=== PATIENT | female | born 1950 | race Caucasian/White ===

== ENCOUNTER 2017-10-25 08:48 | Inpatient (IN) ==
[2017-10-25] MEDS ORDERED: 0.9 % Sodium Chloride 1,000 ML IVC ONE ×2 (09:28→12:13)
[2017-10-25 09:53] LABS: Basophils # 0.1 K/mcL (0.0-0.2); Basophils % 0.5 %; Eosinophils % 0.3 %; Hematocrit 32.8 % (35.3-44.9); Hemoglobin 11.4 g/dL (11.5-15.4); Immature Granulocytes % 2.3 % (0-4); Lymphocytes # 1.6 K/mcL (0.6-4.6); Lymphocytes % 14.6 %; Mean Corpuscular HGB Conc 34.8 g/dL (31.6-35.5); Mean Corpuscular Hemoglobin 32.3 pg (28.0-33.3); Mean Corpuscular Volume 92.9 fL (83.0-100.0); Mean Platelet Volume 11.1 fL (9.4-12.4); Monocytes # 0.7 K/mcL (0.0-1.3); Monocytes % 6.1 %; Neutrophils # 8.2 K/mcL (1.6-8.9); Platelet Count 257 K/mcL (140-400); Red Blood Count 3.53 M/mcL (3.82-4.97); Segmented Neutrophils % 76.2 %
[2017-10-25 10:02] LABS: Activated Partial Thrombo Time 26.4 Seconds (26.0-36.0)
[2017-10-25 10:10] LABS: Alanine Aminotransferase 12 Units/L (7-52); Albumin/Globulin Ratio 0.9 (1.1-2.2); Alkaline Phosphatase 105 Units/L (34-104); Aspartate Amino Transferase 14 Units/L (13-39); BUN/Creatinine Ratio 29 (6-26); Bilirubin,Direct 0.1 mg/dL (0.0-0.2); Bilirubin,Indirect 0.4 mg/dL (0.0-1.2); Bilirubin,Total 0.5 mg/dL (0.3-1.0); Blood Urea Nitrogen 19 mg/dL (8-23); Carbon Dioxide 22 mEq/L (23-29); Chloride 97 mEq/L (98-107); Globulin 3.5 g/dL (2.4-3.5); Glucose 344 mg/dL (70-105); Lipase 3 Units/L (11-82); Magnesium 1.1 mg/dL (1.6-2.6); Osmolality,Calculated 288 (280-300); Phosphorous 3.8 mg/dL (2.7-4.5); Potassium 4.1 mEq/L (3.5-5.1); Sodium 131 mEq/L (136-145); Total Protein 6.5 g/dL (6.4-8.9); eGFR For Non-African Americans > 60 (> 60)
[2017-10-25] MEDS ORDERED: Levofloxacin 750 MG/150 ML 750 MG/150 ML BAG IVPB ONE (11:06)
--- NOTE | 2017-10-25 12:08 | Emergency Department Note ---
Disposition Clinical Impression: Pleural effusion, right Right lower lobe pneumonia Qualifiers: Pneumonia type: due to unspecified organism Qualified Code(s): J18.1 - Lobar pneumonia, unspecified organism Disposition: Admitted As Inpatient Referrals: NONE,PCP [Primary Care Provider] - Forms: ED Satisfaction Letter Time of Disposition: 12:31 General Adult HPI - General Chief complaint: ED Urogenital-Female Stated complaint: UTI, weak Time Seen by Provider: 10/25/17 09:14 Source: patient, family Limitations: no limitations, age Nursing Notes Reviewed: Yes Vital Signs Reviewed: Yes - History of Present Illness HPI Narrative: History is primarily from a son who is not the one cares for her. He indicates that she has been sick for the last several days. Has not been out of bed. Has not been eating or drinking. The patient states that it just does not taste good and she does not feel like drinking. Apparently she is cared for by a different family members and some grandchildren. Patient did not offer but was recently hospitalized for dehydration, suicidal ideation. Apparently voicing that she wanted to take an overdose of insulin. She had acute renal failure at that time and also has a history of COPD and is a smoker. No indication that she has any intention to harm herself this time around. She reports that she has been ill with cough, congestion in the last few days. Denies fevers. Reports very dark urine and decreased volumes of urine. Reports pain from an area on her left heel that she states is increasingly painful over the last 24-48 hours. Denies any leg pain. Denies any abdominal or chest pain. Denies any difficulty breathing. Reports cough is nonproductive Onset (ago): day(s) Pain Scale: 0 - Related Data Home Medications Medication Instructions Recorded Confirmed Insulin Glargine [Lantus] 30 unit SQ BID 07/10/16 10/05/17 Oxycodone HCl/Acetaminophen 1 tab PO QID PRN 07/10/16 10/05/17 [Percocet 10-325 mg Tablet] Promethazine [Phenergan] 25 mg PO Q6HR 07/10/16 10/05/17 Gabapentin [Neurontin] 400 mg PO TID 08/17/17 10/05/17 Amitriptyline [Elavil] 100 mg PO HS 10/03/17 10/05/17 Insulin Regular Human [Humulin R] 0 unit SQ PER PKG DI 10/03/17 10/05/17 Metoclopramide [Reglan] 10 mg PO QIDAC 10/03/17 10/05/17 Previous Rx's Medication Instructions Recorded Amitriptyline [Elavil] 10 mg PO HS #7 tablet 10/07/17 Amitriptyline [Elavil] 25 mg PO HS #7 tablet 10/07/17 Amitriptyline [Elavil] 50 mg PO HS #7 tablet 10/07/17 Mirtazapine [Remeron] 15 mg PO DAILY #30 tablet 10/07/17 Polyethylene Glycol 3350 [MiraLAX] 17 gm PO DAILY #7 powd.pack 10/07/17 Allergies Allergy/AdvReac Type Severity Reaction Status Date / Time gentamicin Allergy Unknown See Verified 10/05/17 09:29 Comments Penicillins Allergy Unknown See Verified 10/05/17 09:29 Comments sertraline [From Zoloft] Allergy Unknown See Verified 10/05/17 09:29 Comments tramadol Allergy Unknown See Verified 10/05/17 09:29 Comments trazodone Allergy Unknown See Verified 10/05/17 09:29 Comments atorvastatin [From Lipitor] Allergy tingling Verified 10/05/17 09:29 duloxetine [From Cymbalta] Allergy Numbness Verified 10/05/17 09:29 ketorolac [From Toradol] Allergy tingling Verified 10/05/17 09:29 morphine Allergy see comment Verified 10/05/17 09:29 ondansetron Allergy see comment Verified 10/05/17 09:29 [From Zofran (as hydrochloride)] prochlorperazine Allergy see comment Verified 10/05/17 09:29 All systems ED: reviewed and negative except as stated. Review of Systems: As Per HPI Gastrointestinal: Denies: abdominal pain, nausea, vomiting Genitourinary: Reports: as per HPI Past Medical History - Past Medical History Medical history: Reports: coronary artery disease, CVA, diabetes, GERD, hyperlipidemia, hypertension, renal disease, other Surgical history: Reports: , cholecystectomy Psychiatric history: Reports: depression INTERNATIONAL TRADE SPECIALIST history: Reports: no INTERNATIONAL TRADE SPECIALIST history - Social History Smoking Status: Current every day smoker Smokeless Tobacco Status: No Alcohol use: Reports: none Drug use: Reports: none Physical Exam Constitutional: Patient is oriented to person, place, and time. Skin color is pink. Appears well hydrated, body habitus elderly and frail. Appears older than her stated age . Non toxic appearing. Head: Normocephalic and atraumatic. External ear exam normal Nose: Nose normal. Mouth/Throat: Uvula is midline, oropharynx is clear mucous membranes are very dry appearing Eyes: Conjunctivae nl, extraocular motions and lids are normal. Pupils are equal , round, and reactive to light. Neck: Normal range of motion and phonation normal. Neck supple. Cardiovascular: Normal rate, regular rhythm, normal heart sounds. Pulmonary/Chest: No Respiratory distress. Respiratory Effort normal and breath sounds congested. Coarse rhonchi. Diffuse. No intercostal retractions. No tachypnea Port-A-Cath noted anterior chest without erythema or any heat or any tenderness around it Abdominal: Soft. Normal appearance and bowel sounds are normal. no tenderness, no masses, no guarding, no rebound Patient has no evidence of breakdown of the skin over her buttocks or her coccyx. She has no swelling or abnormalities of the external vulva Musculoskeletal: Good distal pulses. Soft compartments. Brisk cap refill. Extremities: Normal range of motion.but the patient has muscle wasting and decreased strength diffusely. Blistered ulcer left heel Intact peripheral pulses. No Edema. Extremity skin color nl, no calf tenderness or palpable cords. Neurological: GCS 15 Patient is alert and oriented without evidence of obvious motor deficits Skin: Skin is warm, dry . Patient has a 4 cm round blistered pressure sore over the left heel. Blister is intact. It is quite tender to palpation. Very slight rim of erythema surrounding the blister. I removed the skin over the surface and cultured the turbid fluid but there is no purulence. color is pale, cap refill is quick Psychiatric: Patient has depressed mood and affect. Patient speech is normal and behavior is normal. Thought content normal. She denies suicidality - General Limitations: no limitations General appearance: alert, in no apparent distress Course - Reevaluation(s) Reevaluation #1: I was called to the bedside suddenly as the patient was asking to be put on the bedside commode to provide a urine specimen however she was so weak that the nurse was not able to handle her and we had to get her back in bed. She is clearly not a candidate for outpatient management. Patient has pneumonia and requires inpatient care She has no primary care provider at this point. We will contact our physicians Dr. Cason is operations director Time: 12:22 Reevaluation #2: I discussed the case with hospitalist operations director Dr. Cason. We talked specifically about antibiotic choice and he wishes to continue vancomycin with Levaquin. We talked about Lovenox and a daily lower dose and DuoNeb. She will require IV fluids and he requested that I enter orders for her admission as a courtesy and I have agreed to do so. Patient is agreeable to inpatient care Time: 12:25 Vital Signs Temperature 97.3 F L 10/25/17 09:02 Pulse Rate 133 10/25/17 09:02 Respiratory Rate 16 10/25/17 09:02 Blood Pressure 143/80 10/25/17 09:02 O2 Sat by Pulse Oximetry 97 10/25/17 09:02 Temperature 97.3 F L 10/25/17 09:02 Pulse Rate 119 10/25/17 12:21 Respiratory Rate 16 10/25/17 12:21 Blood Pressure 123/66 10/25/17 12:21 O2 Sat by Pulse Oximetry 100 10/25/17 12:21 Oxygen Delivery Oxygen Delivery Room Air Procedures - Laceration Laceration 1 Site: lower extremity Side (If applicable): left Medical Decision Making - [facility] Narrative Medical decision making narrative: Patient appears ill. May have upper respiratory symptoms. May have respiratory illness such as pneumonia. She also has obviously been in bed and she has got a pressure sore on her left heel. This could be infected although I doubt it would cause systemic symptoms because there is no sign of cellulitis. She also may have acute kidney failure again or other debilitated disease. - Medical Records Medical records reviewed: Yes I reviewed the patient's medical records. Further review of the medical history the patient was just discharged from the hospital on the . She had been seen here in the emergency department but was suicidal so she was sent to [place]. She was seen by psychiatry and internal medicine. Discharged. Her renal function today is excellent compared to a month ago. She does have hyperglycemia today which she has also had issues with. She had a CT scan on of her abdomen which was normal. Her magnesium has improved. Her potassium is now normal. I reviewed previous lab work. - Lab Data Lab results reviewed: Yes I reviewed the patient's lab results. Result diagrams: 10/25/17 09:45 10/25/17 09:45 Lab Results 10/25/17 10/25/17 10/25/17 Range/Units 09:45 09:45 09:45 WBC 10.8 (4.3-11.1) K/mcL RBC 3.53 L (3.82-4.97) M/mcL Hgb 11.4 L (11.5-15.4) g/dL Hct 32.8 L (35.3-44.9) % MCV 92.9 (83.0-100.0) fL MCH 32.3 (28.0-33.3) pg MCHC 34.8 (31.6-35.5) g/dL RDW 13.0 (11.5-14.5) % Plt Count 257 (140-400) K/mcL MPV 11.1 (9.4-12.4) fL Immature Gran % 2.3 (0-4) % Seg Neutrophils % 76.2 % Lymphocytes % 14.6 % Monocytes % 6.1 % Eosinophils % 0.3 % Basophils % 0.5 % Neutrophils # 8.2 (1.6-8.9) K/mcL Lymphocytes # 1.6 (0.6-4.6) K/mcL Monocytes # 0.7 (0.0-1.3) K/mcL Eosinophils # 0.0 (0.0-0.6) K/mcL Basophils # 0.1 (0.0-0.2) K/mcL PT 11.0 (9.4-12.1) Seconds INR 1.0 APTT 26.4 (26.0-36.0) Seconds Sodium 131 L (136-145) mEq/L Potassium 4.1 (3.5-5.1) mEq/L Chloride 97 L (98-107) mEq/L Carbon Dioxide 22 L (23-29) mEq/L BUN 19 (8-23) mg/dL Creatinine 0.66 (0.60-1.20) mg/dL Est GFR ( Amer) > 60 (> 60) Est GFR (Non-Af Amer) > 60 (> 60) BUN/Creatinine Ratio 29 H (6-26) Glucose 344 H (70-105) mg/dL Calculated Osmolality 288 (280-300) Lactic Acid (0.5-2.2) mmol/L Calcium 9.0 (8.6-10.3) mg/dL Phosphorus 3.8 (2.7-4.5) mg/dL Magnesium 1.1 L (1.6-2.6) mg/dL Total Bilirubin 0.5 (0.3-1.0) mg/dL Direct Bilirubin 0.1 (0.0-0.2) mg/dL Indirect Bilirubin 0.4 (0.0-1.2) mg/dL AST 14 (13-39) Units/L ALT 12 (7-52) Units/L Alkaline Phosphatase 105 H (34-104) Units/L Serum Total Protein 6.5 (6.4-8.9) g/dL Albumin 3.0 L (3.5-5.7) g/dL Globulin 3.5 (2.4-3.5) g/dL Albumin/Globulin Ratio 0.9 L (1.1-2.2) Lipase 3 L (11-82) Units/L //18 Range/Units 09:45 WBC (4.3-11.1) K/mcL RBC (3.82-4.97) M/mcL Hgb (11.5-15.4) g/dL Hct (35.3-44.9) % MCV (83.0-100.0) fL MCH (28.0-33.3) pg MCHC (31.6-35.5) g/dL RDW (11.5-14.5) % Plt Count (140-400) K/mcL MPV (9.4-12.4) fL Immature Gran % (0-4) % Seg Neutrophils % % Lymphocytes % % Monocytes % % Eosinophils % % Basophils % % Neutrophils # (1.6-8.9) K/mcL Lymphocytes # (0.6-4.6) K/mcL Monocytes # (0.0-1.3) K/mcL Eosinophils # (0.0-0.6) K/mcL Basophils # (0.0-0.2) K/mcL PT (9.4-12.1) Seconds INR APTT (26.0-36.0) Seconds Sodium (136-145) mEq/L Potassium (3.5-5.1) mEq/L Chloride (98-107) mEq/L Carbon Dioxide (23-29) mEq/L BUN (8-23) mg/dL Creatinine (0.60-1.20) mg/dL Est GFR ( Amer) (> 60) Est GFR (Non-Af Amer) (> 60) BUN/Creatinine Ratio (6-26) Glucose (70-105) mg/dL Calculated Osmolality (280-300) Lactic Acid 1.0 (0.5-2.2) mmol/L Calcium (8.6-10.3) mg/dL Phosphorus (2.7-4.5) mg/dL Magnesium (1.6-2.6) mg/dL Total Bilirubin (0.3-1.0) mg/dL Direct Bilirubin (0.0-0.2) mg/dL Indirect Bilirubin (0.0-1.2) mg/dL AST (13-39) Units/L ALT (7-52) Units/L Alkaline Phosphatase (34-104) Units/L Serum Total Protein (6.4-8.9) g/dL Albumin (3.5-5.7) g/dL Globulin (2.4-3.5) g/dL Albumin/Globulin Ratio (1.1-2.2) Lipase (11-82) Units/L - Radiology Data Radiology results reviewed: Yes I reviewed the patient's radiology results. Chest x-ray radiology impression "new right base opacity with trace effusion. Findings may represent infection in the appropriate clinical setting. Right chest wall MediPort in stable position"
[2017-10-25] MEDS ORDERED: Insulin Regular, Human 100 UNIT/ML SQ ONE (12:13)
[2017-10-25] MEDS ORDERED: Vancomycin 1,000 MG in D5% in Water 250 ML IVPB ONE (12:26)
[2017-10-25] MEDS ORDERED: Ipratropium/Albuterol Neb 3 ML IH ONE (12:28)
[2017-10-25 12:47] LABS: Bilirubin,Urine Small (Negative); Blood,Urine Negative (Negative); Clarity,Urine Clear (Clear); Color,Urine Yellow (Yellow); Glucose,Urine (UA) 500 mg/dL (Normal); Ketones,Urine 40 mg/dL (Negative); Leukocyte Esterase,Urine Negative (Negative); Nitrite,Urine Negative (Negative); PH,Urine 5.5 pH Units (5.0-8.0); Protein,Urine 100 mg/dL (Neg-Trace); Specific Gravity,Urine 1.025 (1.010-1.025); Urobilinogen,Urine Normal (Normal)
[2017-10-25 13:03] LABS: Bacteria,Urine Few per hpf (None-Few); Squamous Epithelial Cell,Urine Few per lpf (None-Few)
[2017-10-25] MEDS ORDERED: Naloxone 0.4 MG/ML INJ IVP PRN (13:36)
[2017-10-25] MEDS ORDERED: *HR* Dextrose 50 % in Water (Syg) 50 ML SYRINGE IVP PRN (13:36)
[2017-10-25] MEDS ORDERED: D5% in Water 1,000 ML IVC PRN (13:36)
[2017-10-25] MEDS ORDERED: Dextrose Gel 15 GM/37.5 ML TUBE PO PRN ×2 (13:36)
[2017-10-25] MEDS ORDERED: NON-FORMULARY MEDICATION 1 EACH EACH (Insulin Glargine [Lantus] 30 UNIT) SQ SCH (13:36)
[2017-10-25] MEDS: Ipratropium/Albuterol Neb 3 ML IH SCH ×3 (14:34→20:50)
[2017-10-25] MEDS: Levofloxacin 500 MG/100 ML 500 MG/100 ML BAG IVPB SCH (14:35)
[2017-10-25] MEDS: 0.9 % Sodium Chloride 1,000 ML IVC SCH ×2 (14:39→23:01)
[2017-10-25] MEDS: Acetaminophen 325 MG TABLET PO PRN (14:49)
[2017-10-25] MEDS: Gabapentin 400 MG CAPSULE PO SCH ×2 (14:49→20:50)
[2017-10-25] MEDS: Insulin LISPRO 300 UNITS/3 ML VIAL SQ SCH (16:48)
[2017-10-25] MEDS: Insulin DETEMIR 100 UNIT/ML X5UNITS SQ SCH (20:50)
[2017-10-25] MEDS ORDERED: Vancomycin 1,000 MG VIAL IVPB SCH (21:00)
[2017-10-26] MEDS ORDERED: *HR* Enoxaparin 30 MG/0.3 ML SYRINGE SQ SCH (06:00)
[2017-10-26 06:05] LABS: Basophils % 0.3 %; Eosinophils # 0.1 K/mcL (0.0-0.6); Eosinophils % 0.7 %; Hematocrit 26.1 % (35.3-44.9); Lymphocytes # 1.7 K/mcL (0.6-4.6); Lymphocytes % 21.5 %; Mean Corpuscular HGB Conc 34.5 g/dL (31.6-35.5); Mean Corpuscular Hemoglobin 32.5 pg (28.0-33.3); Mean Corpuscular Volume 94.2 fL (83.0-100.0); Mean Platelet Volume 10.5 fL (9.4-12.4); Monocytes # 0.5 K/mcL (0.0-1.3); Monocytes % 6.3 %; Neutrophils # 5.2 K/mcL (1.6-8.9); Platelet Count 182 K/mcL (140-400); Red Blood Count 2.77 M/mcL (3.82-4.97); Red Cell Distribution Width 12.8 % (11.5-14.5); Segmented Neutrophils % 68.2 %
[2017-10-26 06:12] LABS: INR 1.1; Prothrombin Time 11.8 Seconds (9.4-12.1)
[2017-10-26 06:15] LABS: Activated Partial Thrombo Time 25.5 Seconds (26.0-36.0)
[2017-10-26 06:20] LABS: Alanine Aminotransferase 9 Units/L (7-52); Albumin 2.4 g/dL (3.5-5.7); Albumin/Globulin Ratio 0.9 (1.1-2.2); Alkaline Phosphatase 83 Units/L (34-104); Aspartate Amino Transferase 10 Units/L (13-39); BUN/Creatinine Ratio 27 (6-26); Bilirubin,Total 0.2 mg/dL (0.3-1.0); Blood Urea Nitrogen 13 mg/dL (8-23); Calcium 7.7 mg/dL (8.6-10.3); Carbon Dioxide 20 mEq/L (23-29); Chloride 106 mEq/L (98-107); Globulin 2.7 g/dL (2.4-3.5); Glucose 125 mg/dL (70-105); Magnesium 0.9 mg/dL (1.6-2.6); Osmolality,Calculated 282 (280-300); Potassium 3.6 mEq/L (3.5-5.1); Sodium 135 mEq/L (136-145); Total Protein 5.1 g/dL (6.4-8.9); eGFR For Non-African Americans > 60 (> 60)
[2017-10-26] MEDS: Insulin LISPRO 300 UNITS/3 ML VIAL SQ SCH ×3 (07:40→16:43)
[2017-10-26] MEDS: Gabapentin 400 MG CAPSULE PO SCH ×3 (08:42→21:40)
[2017-10-26] MEDS: Nicotine 21 MG PATCH.TD24 TD SCH (08:42)
[2017-10-26] MEDS: Mirtazapine 15 MG TABLET PO SCH (08:43)
[2017-10-26] MEDS: Ipratropium/Albuterol Neb 3 ML IH SCH ×4 (08:43→21:41)
[2017-10-26] MEDS: Insulin DETEMIR 100 UNIT/ML X5UNITS SQ SCH ×2 (08:43→21:40)
[2017-10-26] MEDS: *HR* OxyCODONE/APAP 7.5/325 TABLET PO PRN ×3 (09:11→21:40)
--- NOTE | 2017-10-26 09:58 | Internal Med History&Physical ---
Date of Encounter: 10/26/17 Time of Encounter: 09:55 Assessment and Plan (1) COPD exacerbation Current visit: Yes Status: Acute hx of smoking and COPD on breathing treatment and being treated with HHN .Not on steriod at the present time. On my examination there is no wheeze and if needed we could add . She is also a diabetic . (2) Pneumonia Current visit: Yes Status: Acute She has prota cath most likely for IV access there is an infiltrate on right side as well Sputum culture has been sent . Since she was admitted less thena month a go . she was given van . On levo as well . Culture has been sent. WBC is normal. Followp xray ordered tomorrow. Is she continues to improve Van could be discontinues and switched to oral . Will also need to see PT for assessment since she is a fall risk Leigenella and Strep Pneumo antigen pending . Influenza Negative clinically she has improved since her admission . Qualifiers: Pneumonia type: due to unspecified organism Laterality: right Lung location: lower lobe of lung Qualified Code(s): J18.1 - Lobar pneumonia, unspecified organism (3) Diabetes 1.5, managed as type 2 Current visit: No Status: Chronic on meds stable On insulin and sliding scale (4) Low back pain Current visit: No Status: Chronic use percocet as needed Qualifiers: Chronicity: acute Back pain laterality: midline Sciatica presence: without sciatica Qualified Code(s): M54.5 - Low back pain Internal Medicine - H&P: HPI Chief complaint: SOB and hypoxic on exertion Admitted From: Emergency Dept History of present illness: Ms. Jones is a 67 year old female who was discharged from [place] last month and was broguht back again with complains of increase in SOB . She state that she was having difficulty in moving around due to her SOB. She uses Oxygen at home She was increase in cough fever and chills . She still smokes . No chest pain Complains of pain in her back which has been chronic in nautre. She also complains of constipation . Past Med Surg Social Fam HX - Past Medical History Medical history: coronary artery disease, CVA, diabetes, GERD, hyperlipidemia, hypertension, renal disease, other Psychiatric history: depression - Past Surgical History Surgical History: , cholecystectomy - Social History Smoking Status: Current every day smoker Packs per day: 1.5 Smokeless Tobacco Status: No Alcohol use: none Drug use: none - Family History Mother Living Status: Hx Family Cardiac Disorders: Yes (CHF, HTN, [place]) Hx Family Respiratory Disorders: No Hx Family Cancer: No Hx Family GI Disorders: No Hx Family Endocrine Disorder: Yes (DM) Hx Family Neuromuscular Disorders: No Hx Family Neurologic Disorders: No Hx Family HEENT Disorders: No Hx Family Autoimmune Disorders: No Father Hx Family Cardiac Disorders: Yes ([place]) Internal Medicine - H&P: Meds Insulin Glargine [Lantus] 30 unit SQ BID 07/10/16 [History] Oxycodone HCl/Acetaminophen [Percocet 10-325 mg Tablet] 7.5 tab PO PRN PRN 07/10 [History] Promethazine [Phenergan] 25 mg PO Q6HR 07/10/16 [History] Gabapentin [Neurontin] 400 mg PO TID 08/17/17 [History] Amitriptyline [Elavil] 100 mg PO HS 10/03/17 [History] Insulin Regular Human [Humulin R] 0 unit SQ PER PKG DI 10/03/17 [History] Metoclopramide [Reglan] 10 mg PO QIDAC 10/03/17 [History] Amitriptyline [Elavil] 10 mg PO HS #7 tablet 10/07/17 [Rx] Amitriptyline [Elavil] 25 mg PO HS #7 tablet 10/07/17 [Rx] Amitriptyline [Elavil] 50 mg PO HS #7 tablet 10/07/17 [Rx] Mirtazapine [Remeron] 15 mg PO DAILY #30 tablet 10/07/17 [Rx] Polyethylene Glycol 3350 [MiraLAX] 17 gm PO DAILY #7 powd.pack 10/07/17 [Rx] 3 Allergy/AdvReac Type Severity Reaction Status Date / Time gentamicin Allergy Unknown See Verified 10/05/17 09:29 Comments Penicillins Allergy Unknown See Verified 10/05/17 09:29 Comments sertraline [From Zoloft] Allergy Unknown See Verified 10/05/17 09:29 Comments tramadol Allergy Unknown See Verified 10/05/17 09:29 Comments trazodone Allergy Unknown See Verified 10/05/17 09:29 Comments atorvastatin [From Lipitor] Allergy tingling Verified 10/05/17 09:29 duloxetine [From Cymbalta] Allergy Numbness Verified 10/05/17 09:29 ketorolac [From Toradol] Allergy tingling Verified 10/05/17 09:29 morphine Allergy see comment Verified 10/05/17 09:29 ondansetron Allergy see comment Verified 10/05/17 09:29 [From Zofran (as hydrochloride)] prochlorperazine Allergy see comment Verified 10/05/17 09:29 All Systems PM: A 10-system review of systems was performed and is negative for pertinent findings except as documented above in the HPI. - Constitutional Constitutional: fatigue, falls, lethargy, weakness, no anorexia, no chills, no excessive sweating, no weight loss - EENT Eyes: no blurry vision, no diplopia, no discharge, no photophobia, no seeing flashes Nose, mouth and throat: no dysphagia, no facial pain, no nasal congestion, no odynophagia - Cardiovascular Cardiovascular ROS IM: no chest pain, no diaphoresis, no dyspnea, no lightheadedness, no orthopnea, no paroxysmal nocturnal dyspnea, no syncope - Respiratory Respiratory: cough, dyspnea, dyspnea on exertion, wheezing, chest congestion, no hemoptysis, no snoring, no pain on inspiration, no pain with cough - Gastrointestinal Gastrointestinal: no abdominal pain, no constipation, no diarrhea, no nausea, no odynophagia - Genitourinary Genitourinary: no hematuria - Musculoskeletal Musculoskeletal ROS IM: back pain, myalgias, no muscle cramps, no numbness, no stiffness - Integumentary Integumentary IM: new lesions, skin ulcer Additional comments: Skin break on his left heel and back both stage 2 no discharge - Neurological Neurological ROS: disequilibrium, dizziness, frequent falls, no abnormal hearing , no confusion, no convulsions, no tremor(s) - Constitutional Vitals: Temp Pulse Resp BP Pulse Ox 98.7 F 90 18 115/67 99 10/26/17 07:06 10/26/17 07:06 10/26/17 07:06 10/26/17 07:06 10/26/17 07:06 General appearance: Present: A&O X 3, no acute distress - Head Head exam: Present: atraumatic - Eye Eye exam: Present: EOMI, PERRL. Absent: scleral icterus, conjuntiva pink Pupils: Present: PERRL - ENT ENT exam: Present: mucous membranes moist - Neck Neck exam general surgery: Present: supple. Absent: tenderness, nuchal rigidity , thyromegaly - Respiratory Respiratory exam: Present: CTAB Additional comments: Air eatery is equal both lung feels mild wheeze noted on one side otherwise lungs seems quite clear at the present time - Cardiovascular Cardiovascular exam: Present: RRR, +S1, +S2, systolic murmur. Absent: irregular rhythm, JVD Additional comments: soft systolic murmur . no radiation noted - GI/Abdominal GI/Abdominal exam: Present: normal bowel sounds, soft. Absent: distended, firm , rebound, rigid - Extremities Exam Extremities exam: Present: radial pulses palpable and symmetrical. Absent: pedal edema, tenderness - Neurological Exam Neurological exam: Present: CN II-XII intact, oriented X3, no focal deficits. Absent: facial droop, speech deficit - Skin Skin exam: Present: abrasion Additional comments: Stage 2 skin break on her back and on her heel Internal Med - H&P Results - Labs CBC & Chem 7: 10/26/17 06:00 10/26/17 06:00 Labs: Short CBC 10/26/17 Range/Units 06:00 WBC 7.7 (4.3-11.1) K/mcL Hgb 9.0 L D (11.5-15.4) g/dL Hct 26.1 L (35.3-44.9) % Plt Count 182 (140-400) K/mcL Neutrophils # 5.2 (1.6-8.9) K/mcL BMP 10/26/17 06:00 Sodium 135 L Potassium 3.6 Chloride 106 Carbon Dioxide 20 L BUN 13 Creatinine 0.49 L Glucose 125 H Calcium 7.7 L Liver Function 10/26/17 Range/Units 06:00 Total Bilirubin 0.2 L (0.3-1.0) mg/dL AST 10 L (13-39) Units/L ALT 9 (7-52) Units/L Alkaline Phosphatase 83 (34-104) Units/L Albumin 2.4 L (3.5-5.7) g/dL
[2017-10-26] MEDS: Levofloxacin 500 MG/100 ML 500 MG/100 ML BAG IVPB SCH (14:13)
[2017-10-26 19:49] LABS: Hemoglobin A1C 9.5 %
[2017-10-27] MEDS: *HR* Enoxaparin 40 MG/0.4 ML SYRINGE SQ SCH (05:42)
[2017-10-27] MEDS: Ipratropium/Albuterol Neb 3 ML IH SCH ×4 (07:43→21:28)
[2017-10-27 08:01] LABS: BUN/Creatinine Ratio 18 (6-26); Blood Urea Nitrogen 8 mg/dL (8-23); Calcium 7.8 mg/dL (8.6-10.3); Carbon Dioxide 25 mEq/L (23-29); Chloride 105 mEq/L (98-107); Glucose 79 mg/dL (70-105); Osmolality,Calculated 281 (280-300); Potassium 3.4 mEq/L (3.5-5.1); Sodium 137 mEq/L (136-145); eGFR For Non-African Americans > 60 (> 60)
[2017-10-27] MEDS: Insulin LISPRO 300 UNITS/3 ML VIAL SQ SCH ×3 (09:29→17:52)
[2017-10-27] MEDS: Gabapentin 400 MG CAPSULE PO SCH ×3 (09:43→21:28)
[2017-10-27] MEDS: Mirtazapine 15 MG TABLET PO SCH (09:43)
[2017-10-27] MEDS: *HR* OxyCODONE/APAP 7.5/325 TABLET PO PRN ×2 (09:43→16:06)
[2017-10-27] MEDS: Nicotine 21 MG PATCH.TD24 TD SCH (09:43)
[2017-10-27] MEDS: Insulin DETEMIR 100 UNIT/ML X5UNITS SQ SCH ×2 (09:44→21:29)
[2017-10-27] MEDS: Levofloxacin 500 MG/100 ML 500 MG/100 ML BAG IVPB SCH (13:32)
--- NOTE | 2017-10-27 16:57 | Internal Med Progress Note ---
Date of Encounter: 10/27/17 Time of Encounter: 16:38 - Assessment and plan (1) COPD (chronic obstructive pulmonary disease) Current Visit: Yes Status: Acute Assessment and plan: No acute issues at this time. Patient denies any shortness of breath or palpitations. Lungs are clear throughout upper fills and diminished bases. Patient currently being treated for pneumonia. We will continue with current antibiotics and medications Qualifiers: COPD type: unspecified COPD Qualified Code(s): J44.9 - Chronic obstructive pulmonary disease, unspecified (2) Diabetes mellitus Current Visit: No Status: Chronic Assessment and plan: No acute issues. Patient's glucoses were well-controlled with current regimen Qualifiers: Diabetes mellitus type: type 2 Diabetes mellitus complication status: with unspecified complications Diabetes mellitus terminal gauger insulin use: with terminal gauger use Qualified Code(s): E11.8 - Type 2 diabetes mellitus with unspecified complications; Z79.4 - rat exterminator (current) use of insulin; Z79.4 - FPC ( current) use of insulin; Z79.4 - FPC (current) use of insulin; Z79.4 - rat exterminator (current) use of insulin (3) Weakness Current Visit: Yes Status: Acute Assessment and plan: Patient states she continues to have generalized weakness. Patient being evaluated by PT OT. - Subjective Interval history: Patient presented lax and denies any current discomforts or shortness of breath. Patient states she has been concerned because she has been very weak and unable to stand and bear weight. Patient denies any fever or chills. - Constitutional Vitals: Temp Pulse Resp BP Pulse Ox 98.3 F 100 18 130/77 98 10/27/17 16:13 10/27/17 16:13 10/27/17 16:13 10/27/17 16:13 10/27/17 16:13 General appearance: Present: A&O X 3, no acute distress - Head Head exam: Present: atraumatic, normocephalic - Eye Eye exam: Present: PERRL, conjuntiva pink, sclera anicteric Pupils: Present: PERRL - Neck Neck exam general surgery: Present: supple, trachea midline. Absent: lymphadenopathy - Respiratory Respiratory exam: Present: CTAB. Absent: accessory muscle use, rales, rhonchi, wheezes Additional comments: Lungs are clear throughout upper coe and diminished bases. Respiratory effort appears relaxed - Cardiovascular Cardiovascular exam: Present: RRR, +S1, +S2. Absent: diastolic murmur, gallop, rubs, systolic murmur - GI/Abdominal GI/Abdominal exam: Present: normal bowel sounds, soft, no peritoneal signs. Absent: distended, tenderness - Extremities Exam Extremities exam: Present: warm, radial pulses palpable and symmetrical. Absent : calf tenderness, cyanotic, pedal edema - Neurological Exam Neurological exam: Present: CN II-XII intact, oriented X3, no focal deficits. Absent: pronater drift, facial droop, speech deficit Additional comments: Moderate generalized weakness noted. No focal deficits noted on exam - Skin Skin exam: Present: dry, intact Internal Medicine: Result - Labs CBC & Chem 7: 10/26/17 06:00 10/27/17 05:35 Labs: BMP 10/27/17 05:35 Sodium 137 Potassium 3.4 L Chloride 105 Carbon Dioxide 25 BUN 8 Creatinine 0.45 L Glucose 79 Calcium 7.8 L - ABG Interpretation ABG results: PT/INR, D-dimer PT 11.8 Seconds (9.4-12.1) 10/26/17 06:00 - Impressions Impressions Chest X-Ray 10/27/17 10:20 IMPRESSION: 1. No acute radiographic abnormality in the chest. 2. Right base opacity with small right pleural effusion seen on the radiograph of October 25, 2017 are no longer visible. D/ / Nathaniel Alfonso MD / Nathaniel Alfonso MD Interpreting Provider: Nathaniel Alfonso MD Consult Discharge Plan - Plan Referrals: NONE,PCP [Primary Care Provider] -
[2017-10-28] MEDS: *HR* Enoxaparin 40 MG/0.4 ML SYRINGE SQ SCH (04:12)
[2017-10-28] MEDS: *HR* OxyCODONE/APAP 7.5/325 TABLET PO PRN ×4 (04:13→23:26)
[2017-10-28] MEDS ORDERED: Aminoglycoside Consult 1 EACH MC ONE (07:17)
[2017-10-28] MEDS: Gabapentin 400 MG CAPSULE PO SCH ×3 (09:20→21:41)
[2017-10-28] MEDS: Nicotine 21 MG PATCH.TD24 TD SCH (09:20)
[2017-10-28] MEDS: Mirtazapine 15 MG TABLET PO SCH (09:20)
[2017-10-28] MEDS: Ipratropium/Albuterol Neb 3 ML IH SCH ×4 (09:22→21:48)
[2017-10-28] MEDS: Insulin LISPRO 300 UNITS/3 ML VIAL SQ SCH ×3 (09:28→16:57)
[2017-10-28] MEDS: Insulin DETEMIR 100 UNIT/ML X5UNITS SQ SCH ×2 (09:38→21:43)
--- NOTE | 2017-10-28 09:48 | Internal Med Progress Note ---
Date of Encounter: 10/28/17 Time of Encounter: 09:45 - Assessment and plan (1) COPD (chronic obstructive pulmonary disease) Current Visit: Yes Status: Acute Assessment and plan: No acute issues at this time. Patient denies any shortness of breath or palpitations. Lungs are clear throughout upper fills and diminished bases. Patient currently being treated for pneumonia. We will continue with current antibiotics and medications Qualifiers: COPD type: unspecified COPD Qualified Code(s): J44.9 - Chronic obstructive pulmonary disease, unspecified (2) UTI (urinary tract infection) Current Visit: No Status: Acute Assessment and plan: improving. continue levaquin Qualifiers: Urinary tract infection type: site unspecified Hematuria presence: without hematuria Qualified Code(s): N39.0 - Urinary tract infection, site not specified (3) Diabetes 1.5, managed as type 2 Current Visit: No Status: Chronic Assessment and plan: stable. monitor FSBS and continue current meds. - Time Spent With Patient less than 15 minutes - Subjective Interval history: states right hip slight pain (ROM normal, slight tenderness to palpate). no injury. c/o left heal pain (has wound on left heal). denies urinary symptoms, fever, chills, NVD. has sandoval cath. will try ice for right hip. - Constitutional Vitals: Temp Pulse Resp BP Pulse Ox 98.0 F 98 14 118/66 96 10/28/17 07:24 10/28/17 07:24 10/28/17 07:24 10/28/17 07:24 10/28/17 07:24 General appearance: Present: A&O X 3, pleasant, no acute distress, answers questions appropriately - Head Head exam: Present: atraumatic, normocephalic - Eye Eye exam: Present: PERRL, conjuntiva pink, sclera anicteric Pupils: Present: PERRL - Neck Neck exam general surgery: Present: supple, trachea midline. Absent: lymphadenopathy - Respiratory Respiratory exam: Present: CTAB. Absent: accessory muscle use, rales, rhonchi, wheezes - Cardiovascular Cardiovascular exam: Present: RRR, +S1, +S2. Absent: diastolic murmur, gallop, rubs, systolic murmur - GI/Abdominal GI/Abdominal exam: Present: normal bowel sounds, soft, no peritoneal signs. Absent: distended, tenderness - Extremities Exam Extremities exam: Present: warm, radial pulses palpable and symmetrical. Absent : calf tenderness, cyanotic, pedal edema - Neurological Exam Neurological exam: Present: CN II-XII intact, oriented X3, no focal deficits. Absent: pronater drift, facial droop, speech deficit - Skin Skin exam: Present: dry, intact Additional comments: left heal wound drsg dry and intact. no redness. Internal Medicine: Result - Labs CBC & Chem 7: 10/26/17 06:00 10/27/17 05:35 - ABG Interpretation ABG results: PT/INR, D-dimer PT 11.8 Seconds (9.4-12.1) 10/26/17 06:00 Consult Discharge Plan - Plan Referrals: NONE,PCP [Primary Care Provider] -
[2017-10-28 13:08] LABS: Basophils % 0.3 %; Eosinophils # 0.1 K/mcL (0.0-0.6); Eosinophils % 1.3 %; Hematocrit 27.2 % (35.3-44.9); Hemoglobin 9.5 g/dL (11.5-15.4); Immature Granulocytes % 2.4 % (0-4); Lymphocytes # 1.5 K/mcL (0.6-4.6); Lymphocytes % 22.2 %; Mean Corpuscular HGB Conc 34.9 g/dL (31.6-35.5); Mean Corpuscular Hemoglobin 32.3 pg (28.0-33.3); Mean Corpuscular Volume 92.5 fL (83.0-100.0); Mean Platelet Volume 10.8 fL (9.4-12.4); Monocytes # 0.5 K/mcL (0.0-1.3); Monocytes % 6.8 %; Neutrophils # 4.6 K/mcL (1.6-8.9); Platelet Count 209 K/mcL (140-400); Red Blood Count 2.94 M/mcL (3.82-4.97); Red Cell Distribution Width 12.9 % (11.5-14.5)
[2017-10-28 13:24] LABS: BUN/Creatinine Ratio 14 (6-26); Blood Urea Nitrogen 6 mg/dL (8-23); Carbon Dioxide 28 mEq/L (23-29); Chloride 99 mEq/L (98-107); Glucose 146 mg/dL (70-105); Osmolality,Calculated 276 (280-300); Sodium 133 mEq/L (136-145); eGFR For Non-African Americans > 60 (> 60)
[2017-10-28] MEDS: Acetaminophen 325 MG TABLET PO PRN (13:24)
[2017-10-28] MEDS: Levofloxacin 500 MG/100 ML 500 MG/100 ML BAG IVPB SCH (13:27)
[2017-10-29] MEDS: *HR* OxyCODONE/APAP 7.5/325 TABLET PO PRN ×3 (06:02→21:18)
[2017-10-29] MEDS: *HR* Enoxaparin 40 MG/0.4 ML SYRINGE SQ SCH (06:02)
[2017-10-29] MEDS: Ipratropium/Albuterol Neb 3 ML IH SCH ×4 (07:54→18:38)
[2017-10-29] MEDS: Nicotine 21 MG PATCH.TD24 TD SCH (09:56)
[2017-10-29] MEDS: Mirtazapine 15 MG TABLET PO SCH (09:56)
[2017-10-29] MEDS: Gabapentin 400 MG CAPSULE PO SCH ×3 (09:56→21:18)
[2017-10-29] MEDS: Insulin LISPRO 300 UNITS/3 ML VIAL SQ SCH ×3 (09:56→17:25)
[2017-10-29] MEDS: Insulin DETEMIR 100 UNIT/ML X5UNITS SQ SCH ×2 (09:56→21:32)
[2017-10-29] MEDS: Acetaminophen 325 MG TABLET PO PRN ×2 (10:01→17:26)
--- NOTE | 2017-10-29 11:48 | Internal Med Progress Note ---
Date of Encounter: 10/29/17 Time of Encounter: 11:45 - Assessment and plan (1) UTI (urinary tract infection) Current Visit: No Status: Acute Assessment and plan: She is not feeling well. She feels like she is worsening. Her urine is cloudy and urine culture was not sent reflexively, before. We will therefore remove her catheter, obtain a fresh sample and require that a culture be obtained. Continue Levaquin, for now. This could also simply be bladder irritation from her Jaime catheter or another problem, altogether. Will monitor. Qualifiers: Urinary tract infection type: site unspecified Hematuria presence: without hematuria Qualified Code(s): N39.0 - Urinary tract infection, site not specified (2) COPD (chronic obstructive pulmonary disease) Current Visit: Yes Status: Acute Assessment and plan: Clinically stable to history and physical. s Qualifiers: COPD type: unspecified COPD Qualified Code(s): J44.9 - Chronic obstructive pulmonary disease, unspecified (3) Diabetes mellitus Current Visit: No Status: Chronic Assessment and plan: She was marginally hypoglycemic last evening. Will increase her caloric intake and decrease her long-acting insulin. Qualifiers: Diabetes mellitus type: type 2 Diabetes mellitus complication status: with unspecified complications Diabetes mellitus oysterman insulin use: with care home use Qualified Code(s): E11.8 - Type 2 diabetes mellitus with unspecified complications; Z79.4 - long term care social worker (current) use of insulin; Z79.4 - snf ( current) use of insulin; Z79.4 - long term care social worker (current) use of insulin; Z79.4 - snf (current) use of insulin (4) Decubital ulcer Current Visit: Yes Status: Acute Assessment and plan: Will continue to pad and protect. Spoke with patient about the need for ongoing care. Will make sure that home health is involved and available. She was seen by wound care yesterday and will have dressing changes twice weekly. I have requested social service consultation about home health for wound care and dressing changes. Qualifiers: Pressure ulcer location: sacral region Pressure ulcer stage: stage 2 Qualified Code(s): L89.152 - Pressure ulcer of sacral region, stage 2 - Time Spent With Patient less than 15 minutes - Subjective Interval history: Patient feels like she has another urinary tract infection. She describes this as burning in the bladder as well as back pain at the low back consistent with her previous UTIs. She still has problems with left heel pain and minimally at the sacrum. She states that ice is nicely helping her right hip area pain. She denies cough or congestion, shortness of breath. She has no fevers or chills or sweats and feels that her mental clarity is at its baseline. The patient has no shortness of breath, chest heaviness or pain, palpitation, chills or sweats, abdominal pain or changes in bowel habits, melena or hematochezia, other pain. Review of systems is otherwise unremarkable, except as mentioned above. - Constitutional Vitals: Temp Pulse Resp BP Pulse Ox 97.9 F 98 16 118/67 96 10/29/17 07:30 10/29/17 10:54 10/29/17 10:54 10/29/17 10:54 10/29/17 10:54 General appearance: Present: A&O X 3, pleasant, no acute distress, answers questions appropriately - Head Head exam: Present: atraumatic, normal inspection, normocephalic - Neck Neck exam general surgery: Present: full ROM, supple, trachea midline. Absent: tenderness - Respiratory Respiratory exam: Present: CTAB. Absent: accessory muscle use - Cardiovascular Cardiovascular exam: Present: RRR. Absent: systolic murmur - GI/Abdominal GI/Abdominal exam: Present: hypoactive bowel sounds, soft. Absent: hepatomegaly , mass, normal bowel sounds, pulsatile mass, splenomegaly, tenderness Additional comments: Has right CVA tenderness to percussion. - Extremities Exam Extremities exam: Present: normal capillary refill. Absent: calf tenderness, pedal edema Internal Medicine: Result - Labs CBC & Chem 7: 10/28/17 12:55 10/28/17 12:55 Labs: Short CBC 10/28/17 Range/Units 12:55 WBC 6.8 (4.3-11.1) K/mcL Hgb 9.5 L (11.5-15.4) g/dL Hct 27.2 L (35.3-44.9) % Plt Count 209 (140-400) K/mcL Neutrophils # 4.6 (1.6-8.9) K/mcL BMP 10/28/17 12:55 Sodium 133 L Potassium 4.0 Chloride 99 Carbon Dioxide 28 BUN 6 L Creatinine 0.42 L Glucose 146 H Calcium 8.0 L - ABG Interpretation ABG results: PT/INR, D-dimer PT 11.8 Seconds (9.4-12.1) 10/26/17 06:00 Consult Discharge Plan - Plan Referrals: NONE,PCP [Primary Care Provider] -
[2017-10-29] MEDS: Levofloxacin 500 MG/100 ML 500 MG/100 ML BAG IVPB SCH (14:14)
[2017-10-29 17:49] LABS: Bilirubin,Urine Negative (Negative); Blood,Urine Trace-intact (Negative); Clarity,Urine Clear (Clear); Color,Urine Yellow (Yellow); Glucose,Urine (UA) Normal (Normal); Ketones,Urine Negative (Negative); Leukocyte Esterase,Urine Negative (Negative); Nitrite,Urine Negative (Negative); Protein,Urine Trace mg/dL (Neg-Trace); Specific Gravity,Urine 1.025 (1.010-1.025); Urobilinogen,Urine Normal (Normal)
[2017-10-29 17:55] LABS: RBC,Urine 0-3 per hpf (0-3); Squamous Epithelial Cell,Urine Few per lpf (None-Few); WBC,Urine 0-3 per hpf (0-3)
[2017-10-30] MEDS: *HR* Enoxaparin 40 MG/0.4 ML SYRINGE SQ SCH (05:48)
[2017-10-30] MEDS: Gabapentin 400 MG CAPSULE PO SCH ×2 (07:35→15:38)
[2017-10-30] MEDS: Mirtazapine 15 MG TABLET PO SCH (07:35)
[2017-10-30] MEDS: *HR* OxyCODONE/APAP 7.5/325 TABLET PO PRN ×2 (07:35→13:44)
[2017-10-30] MEDS: Nicotine 21 MG PATCH.TD24 TD SCH (07:39)
[2017-10-30] MEDS: Ipratropium/Albuterol Neb 3 ML IH SCH ×2 (07:41→13:45)
[2017-10-30] MEDS: Insulin LISPRO 300 UNITS/3 ML VIAL SQ SCH ×2 (07:42→12:25)
[2017-10-30] MEDS: Insulin DETEMIR 100 UNIT/ML X5UNITS SQ SCH (09:14)
--- NOTE | 2017-10-30 11:27 | Internal Med Progress Note ---
Date of Encounter: 10/30/17 Time of Encounter: 11:23 - Assessment and plan (1) COPD (chronic obstructive pulmonary disease) Current Visit: Yes Status: Acute Assessment and plan: Clinically stable. continue meds. Qualifiers: COPD type: unspecified COPD Qualified Code(s): J44.9 - Chronic obstructive pulmonary disease, unspecified (2) UTI (urinary tract infection) Current Visit: Yes Status: Acute Assessment and plan: denies urinary symptoms. sandoval cath changed yesterday. Continue Levaquin, for now. Qualifiers: Urinary tract infection type: site unspecified Hematuria presence: without hematuria Qualified Code(s): N39.0 - Urinary tract infection, site not specified (3) Diabetes 1.5, managed as type 2 Current Visit: Yes Status: Chronic Assessment and plan: stable. monitor FSBS and continue current meds. (4) Slow transit constipation Current Visit: Yes Status: Acute Assessment and plan: will order miralax and dulcolax sup. - Time Spent With Patient less than 15 minutes - Subjective Interval history: c/o constipation. last BM friday. denies NVD. denies sob, fever, chills or chest pain. has sandoval cath. partiicpating well with therapy. - Constitutional Vitals: Temp Pulse Resp BP Pulse Ox 98.2 F 103 14 152/74 95 10/30/17 07:50 10/30/17 07:50 10/30/17 07:50 10/30/17 07:50 10/30/17 07:50 General appearance: Present: A&O X 3, pleasant, no acute distress, answers questions appropriately - Head Head exam: Present: atraumatic, normocephalic - Eye Eye exam: Present: PERRL, conjuntiva pink, sclera anicteric Pupils: Present: PERRL - Neck Neck exam general surgery: Present: supple, trachea midline. Absent: lymphadenopathy - Respiratory Respiratory exam: Present: CTAB. Absent: accessory muscle use, rales, rhonchi, wheezes - Cardiovascular Cardiovascular exam: Present: RRR, +S1, +S2. Absent: diastolic murmur, gallop, rubs, systolic murmur - GI/Abdominal GI/Abdominal exam: Present: normal bowel sounds, soft, no peritoneal signs. Absent: distended, tenderness - Extremities Exam Extremities exam: Present: warm, radial pulses palpable and symmetrical. Absent : calf tenderness, cyanotic, pedal edema - Neurological Exam Neurological exam: Present: CN II-XII intact, oriented X3, no focal deficits. Absent: pronater drift, facial droop, speech deficit - Skin Skin exam: Present: dry, intact Internal Medicine: Result - Labs CBC & Chem 7: 10/28/17 12:55 10/28/17 12:55 Labs: Urine 10/29/17 Range/Units 17:36 Urine Color Yellow (Yellow) Urine Clarity Clear (Clear) Urine pH 6.0 (5.0-8.0) pH Units Ur Specific [place] 1.025 (1.010-1.025) Urine Protein Trace (Neg-Trace) mg/dL Urine Glucose (UA) Normal (Normal) mg/dL - ABG Interpretation ABG results: PT/INR, D-dimer PT 11.8 Seconds (9.4-12.1) 10/26/17 06:00 Consult Discharge Plan - Plan Referrals: NONE,PCP [Primary Care Provider] -
[2017-10-30] MEDS ORDERED: Bisacodyl 10 MG RECTAL SUPPOSITORY RC SCH (11:45)
[2017-10-30] MEDS: Levofloxacin 500 MG/100 ML 500 MG/100 ML BAG IVPB SCH (13:44)
[2017-10-30 14:23] VITALS: BP 105/55
--- NOTE | 2017-10-30 15:48 | Discharge Summary ---
Orders not resulted at time of discharge: Pending orders 10/26/17 10:06 Sputum Culture [Culture,Sputum with Gram Stain] [] Routine 10/29/17 11:15 UC [Culture,Urine] [] Routine Date of Encounter: 10/30/17 Time of Encounter: 15:47 - Discharge Diagnosis (1) UTI (urinary tract infection) Priority: Primary Status: Acute Comments: Patient admitted with urinary symptoms and mental status changes but no infection documented, thus far. It had been presumed that she was having mental status changes based on her urinary infection and she was treated for same. When she improved, this was presumed to be accurate. However, she has a history of mental illness and questions of dementia or pseudodementia. Qualifiers: Urinary tract infection type: site unspecified Hematuria presence: without hematuria Qualified Code(s): N39.0 - Urinary tract infection, site not specified (2) COPD (chronic obstructive pulmonary disease) Priority: Secondary Status: Acute Qualifiers: COPD type: unspecified COPD Qualified Code(s): J44.9 - Chronic obstructive pulmonary disease, unspecified (3) Diabetes mellitus Priority: Secondary Status: Chronic Qualifiers: Diabetes mellitus type: type 2 Diabetes mellitus complication status: with unspecified complications Diabetes mellitus usp insulin use: with credit director use Qualified Code(s): E11.8 - Type 2 diabetes mellitus with unspecified complications; Z79.4 - [facility] (current) use of insulin; Z79.4 - sheet folder ( current) use of insulin; Z79.4 - sheet folder (current) use of insulin; Z79.4 - [facility] (current) use of insulin (4) Decubital ulcer Priority: Secondary Status: Acute Comments: Developed after a month of inactivity at home, almost total bedrest. Qualifiers: Pressure ulcer location: sacral region Pressure ulcer stage: stage 2 Qualified Code(s): L89.152 - Pressure ulcer of sacral region, stage 2 Hospital course: Ms. Jones is a 67 year old female with mental status changes presumed to be related to urinary tract infection because of her chronic indwelling Jaime catheter. She has similar changes in the past with a urinary infection. Her family brought her to the [facility] emergency department and she was treated with antibiotics, admitted to an out patient status improved somewhat. Upon multiple further evaluations, she continued to have inappropriate assessment and decision making. This was discussed with family and apparently is at her base line. This baseline is based on about a month or slightly longer of being in bed, decreased intake, and having depressive symptoms after the of her . She has a premorbid psychological history and has had difficulties with depression in the past. Because of concerns of her strength and home safety, she was evaluated by therapies. It was felt that she would benefit from rehabilitation services and approval was received by her insurance company for admission to a skilled bed. She is thus to be discharged for further evaluation and management with therapies. Discharge discussed with: patient Time spent discussing smoking cessation with patient: more than 10 minutes - Time Spent with Patient Total time spent providing and/or coordinating discharge services: Less than 30 minutes - Discharge Medications Home Medications: Insulin Glargine [Lantus] 30 unit SQ BID 07/10/16 [History] Oxycodone HCl/Acetaminophen [Percocet 10-325 mg Tablet] 7.5 tab PO PRN PRN 07/10 [History] Promethazine [Phenergan] 25 mg PO Q6HR 07/10/16 [History] Gabapentin [Neurontin] 400 mg PO TID 08/17/17 [History] Amitriptyline [Elavil] 100 mg PO HS 10/03/17 [History] Insulin Regular Human [Humulin R] 0 unit SQ PER PKG DI 10/03/17 [History] Metoclopramide [Reglan] 10 mg PO QIDAC 10/03/17 [History] Amitriptyline [Elavil] 10 mg PO HS #7 tablet 10/07/17 [Rx] Amitriptyline [Elavil] 25 mg PO HS #7 tablet 10/07/17 [Rx] Amitriptyline [Elavil] 50 mg PO HS #7 tablet 10/07/17 [Rx] Mirtazapine [Remeron] 15 mg PO DAILY #30 tablet 10/07/17 [Rx] Polyethylene Glycol 3350 [MiraLAX] 17 gm PO DAILY #7 powd.pack 10/07/17 [Rx] Allergies/Adverse Reactions: 3 Allergy/AdvReac Type Severity Reaction Status Date / Time gentamicin Allergy Unknown See Verified 10/05/17 09:29 Comments Penicillins Allergy Unknown See Verified 10/05/17 09:29 Comments sertraline [From Zoloft] Allergy Unknown See Verified 10/05/17 09:29 Comments tramadol Allergy Unknown See Verified 10/05/17 09:29 Comments trazodone Allergy Unknown See Verified 10/05/17 09:29 Comments atorvastatin [From Lipitor] Allergy tingling Verified 10/05/17 09:29 duloxetine [From Cymbalta] Allergy Numbness Verified 10/05/17 09:29 ketorolac [From Toradol] Allergy tingling Verified 10/05/17 09:29 morphine Allergy see comment Verified 10/05/17 09:29 ondansetron Allergy see comment Verified 10/05/17 09:29 [From Zofran (as hydrochloride)] prochlorperazine Allergy see comment Verified 10/05/17 09:29 Date of admission: 10/25/17 12:46 Primary care physician: PCP NONE Consults: 10/25/17 15:21 Consult to Wound Care [CONS] Routine Reason for Consult: left heel ulcer and coccyx ulcer Call Completed: Yes 10/28/17 14:13 Consult to Occupational Therapy [CONS] Routine Comment: Evaluate, develop and implement POC Reason for Consult: eval 10/28/17 14:14 Consult to Physical Therapy [CONS] Routine Comment: Evaluate, develop and implement POC Reason for Consult: eval 10/29/17 12:09 Consult to Mexican Food Maker [CONS] Routine Reason for SW Consult: Please evaluate for home situation and discharge planning for home health and wound care. Discharging clinician: Stephen Giles Anticipated date of discharge: 10/30/17 - Constitutional Vitals: Temp Pulse Resp BP Pulse Ox 98.1 F 97 14 105/55 98 10/30/17 14:21 10/30/17 14:21 10/30/17 14:21 10/30/17 14:21 10/30/17 14:21 General appearance: Present: A&O X 3, pleasant, no acute distress, answers questions appropriately - Head Head exam: Present: atraumatic, normal inspection, normocephalic - Respiratory Respiratory exam: Present: CTAB. Absent: accessory muscle use - Cardiovascular Cardiovascular exam: Present: RRR. Absent: systolic murmur - GI/Abdominal GI/Abdominal exam: Present: normal bowel sounds, soft. Absent: bruit, hepatomegaly, pulsatile mass, splenomegaly, tenderness - Extremities Exam Extremities exam: Present: normal capillary refill, warm. Absent: calf tenderness, pedal edema, tenderness - Back Exam Back exam: Absent: CVA tenderness (L), CVA tenderness (R) - Skin Additional comments: C previous documentation of wounds. - Patient Status Disposition: Transfer Hospital Swing Bed Condition: Fair Functional capacity at discharge: bed bound Overall status at discharge: patient is not back to baseline - Discharge Instructions Follow Up With: NONE,PCP [Primary Care Provider] - - Diet and Activity Activity: as per physical therapy Diet: diabetic diet
--- NOTE | 2017-10-31 07:57 | Electrocardiograph Report ---
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
== END 2017-10-30 16:07 | disposition other institution (70) | DRG 190 ==
LOC: EMEROOGRE 08:48 → INPGRE 12:46
PROVIDERS: ADMIT Internal Medicine; ATTEND Internal Medicine

== ENCOUNTER 2017-10-30 15:13 | Inpatient (IN) ==
[2017-10-30] MEDS ORDERED: *HR* OxyCODONE/APAP 7.5/325 TABLET PO PRN (16:38)
[2017-10-30] MEDS ORDERED: D5% in Water 1,000 ML IVC PRN (16:45)
[2017-10-30] MEDS ORDERED: Dextrose Gel 15 GM PO PRN ×2 (16:45)
[2017-10-30] MEDS ORDERED: *HR* Dextrose 50 % in Water (Syg) 50 ML SYRINGE IVP PRN (16:45)
[2017-10-30] MEDS ORDERED: Naloxone 0.4 MG/ML INJ IVP PRN (16:53)
[2017-10-30] MEDS ORDERED: NON-FORMULARY MEDICATION 1 EACH EACH (Insulin Glargine [Lantus] 20 UNIT) SQ SCH (21:00)
[2017-10-30] MEDS ORDERED: Insulin DETEMIR 100 UNIT/ML X5UNITS SQ SCH (21:00)
[2017-10-30] MEDS ORDERED: Insulin DETEMIR 100 UNIT/ML per UNIT SQ ONE (21:15)
[2017-10-30] MEDS: Insulin LISPRO 300 UNITS/3 ML VIAL SQ SCH (21:53)
[2017-10-30] MEDS: Gabapentin 400 MG CAPSULE PO SCH (21:53)
[2017-10-30] MEDS: Acetaminophen 325 MG TABLET PO PRN (21:54)
[2017-10-30] MEDS: Ipratropium/Albuterol Neb 3 ML IH SCH (21:54)
[2017-10-31] MEDS: Ipratropium/Albuterol Neb 3 ML IH SCH ×4 (00:56→11:54)
[2017-10-31] MEDS: *HR* Enoxaparin 40 MG/0.4 ML SYRINGE SQ SCH (05:24)
[2017-10-31] MEDS: *HR* OxyCODONE/APAP 7.5/325 TABLET PO PRN ×3 (05:42→21:09)
[2017-10-31] MEDS: Insulin LISPRO 300 UNITS/3 ML VIAL SQ SCH ×4 (08:06→21:13)
[2017-10-31] MEDS: Bisacodyl 10 MG RECTAL SUPPOSITORY RC SCH (08:07)
[2017-10-31] MEDS: Nicotine 21 MG PATCH.TD24 TD SCH (08:15)
[2017-10-31] MEDS: Gabapentin 400 MG CAPSULE PO SCH ×3 (08:15→21:07)
[2017-10-31] MEDS: Mirtazapine 15 MG TABLET PO SCH (08:15)
[2017-10-31] MEDS: Insulin DETEMIR 100 UNIT/ML X5UNITS SQ SCH ×2 (08:16→21:10)
[2017-10-31 08:19] LABS: Basophils % 0.3 %; Eosinophils # 0.1 K/mcL (0.0-0.6); Eosinophils % 0.7 %; Hematocrit 29.7 % (35.3-44.9); Hemoglobin 10.1 g/dL (11.5-15.4); Immature Granulocytes % 3.3 % (0-4); Lymphocytes # 1.7 K/mcL (0.6-4.6); Lymphocytes % 17.5 %; Mean Corpuscular Hemoglobin 32.2 pg (28.0-33.3); Mean Corpuscular Volume 94.6 fL (83.0-100.0); Mean Platelet Volume 10.7 fL (9.4-12.4); Monocytes # 0.5 K/mcL (0.0-1.3); Monocytes % 5.3 %; Platelet Count 322 K/mcL (140-400); Red Blood Count 3.14 M/mcL (3.82-4.97); Red Cell Distribution Width 13.1 % (11.5-14.5); Segmented Neutrophils % 72.9 %
[2017-10-31] MEDS ORDERED: cloNIDine HCl 0.1 MG TABLET PO PRN (09:53)
[2017-10-31 10:06] LABS: Alanine Aminotransferase 12 Units/L (7-52); Albumin 3.2 g/dL (3.5-5.7); Albumin/Globulin Ratio 1.1 (1.1-2.2); Alkaline Phosphatase 87 Units/L (34-104); Aspartate Amino Transferase 17 Units/L (13-39); BUN/Creatinine Ratio 21 (6-26); Bilirubin,Total 0.3 mg/dL (0.3-1.0); Blood Urea Nitrogen 11 mg/dL (8-23); Calcium 8.7 mg/dL (8.6-10.3); Carbon Dioxide 27 mEq/L (23-29); Chloride 101 mEq/L (98-107); Globulin 2.8 g/dL (2.4-3.5); Glucose 169 mg/dL (70-105); Osmolality,Calculated 285 (280-300); Potassium 4.2 mEq/L (3.5-5.1); Sodium 136 mEq/L (136-145); eGFR For African Americans > 60 (> 60); eGFR For Non-African Americans > 60 (> 60)
[2017-10-31] MEDS ORDERED: Ipratropium/Albuterol Neb 3 ML IH PRN (11:56)
--- NOTE | 2017-10-31 11:57 | Internal Med Progress Note ---
Date of Encounter: 10/31/17 Time of Encounter: 11:55 - Assessment and plan (1) COPD exacerbation Current Visit: Yes Status: Acute Assessment and plan: No acute issues. Denies any current productive cough or dyspnea. Resp status appear relaxed. No hypoxia. Will continue on current meds and bronchodilators. (2) Knee pain Current Visit: Yes Status: Acute Assessment and plan: Pt with c/o right knee pain. No obvious deformity or injury noted. No edema or erythema note. No antalgic pain offered. Hx of LBP and possibly due to radicular pain from lumbar. Will obtain Xray of right knee. Qualifiers: Chronicity: acute Laterality: right Qualified Code(s): M25.561 - Pain in right knee (3) Depression Current Visit: Yes Status: Chronic Assessment and plan: Pt interacting well with staff. Denies any current issues and appears in good spirits at time of exam. Qualifiers: Depression Type: unspecified Qualified Code(s): F32.9 - Major depressive disorder, single episode, unspecified - Time Spent With Patient less than 15 minutes - Subjective Interval history: Pt continue with c/o pain to the right knee. Denies any other current discomforts or dyspnea. States that she feels that she is getting stronger. - Constitutional Vitals: Temp Pulse Resp BP Pulse Ox 98.4 F 85 16 175/76 94 10/31/17 07:40 10/31/17 07:40 10/31/17 07:40 10/31/17 07:40 10/31/17 07:40 General appearance: Present: A&O X 3 - Head Head exam: Present: atraumatic, normocephalic - Eye Eye exam: Present: PERRL, conjuntiva pink, sclera anicteric Pupils: Present: PERRL - Neck Neck exam general surgery: Present: supple, trachea midline. Absent: lymphadenopathy - Respiratory Respiratory exam: Present: CTAB. Absent: accessory muscle use, rales, rhonchi, wheezes - Cardiovascular Cardiovascular exam: Present: RRR, +S1, +S2. Absent: diastolic murmur, gallop, rubs, systolic murmur - GI/Abdominal GI/Abdominal exam: Present: normal bowel sounds, soft, no peritoneal signs. Absent: distended, tenderness - Extremities Exam Extremities exam: Present: warm, radial pulses palpable and symmetrical. Absent : calf tenderness, cyanotic, pedal edema Additional comments: c/o pain to the right hip and knee, but no obvious deformities or injuries noted. - Neurological Exam Neurological exam: Present: CN II-XII intact, oriented X3, no focal deficits. Absent: pronater drift, facial droop, speech deficit - Skin Skin exam: Present: dry, intact Internal Medicine: Result - Labs CBC & Chem 7: 10/31/17 08:16 10/31/17 08:16 Labs: Short CBC 10/31/17 Range/Units 08:16 WBC 9.6 (4.3-11.1) K/mcL Hgb 10.1 L (11.5-15.4) g/dL Hct 29.7 L (35.3-44.9) % Plt Count 322 D (140-400) K/mcL Neutrophils # 7.0 (1.6-8.9) K/mcL BMP 10/31/17 08:16 Sodium 136 Potassium 4.2 Chloride 101 Carbon Dioxide 27 BUN 11 Creatinine 0.53 L Glucose 169 H Calcium 8.7 Liver Function 10/31/17 Range/Units 08:16 Total Bilirubin 0.3 (0.3-1.0) mg/dL AST 17 (13-39) Units/L ALT 12 (7-52) Units/L Alkaline Phosphatase 87 (34-104) Units/L Albumin 3.2 L (3.5-5.7) g/dL Consult Discharge Plan - Plan Referrals: NONE,PCP [Primary Care Provider] -
[2017-11-01] MEDS: *HR* Enoxaparin 40 MG/0.4 ML SYRINGE SQ SCH (05:10)
[2017-11-01] MEDS: *HR* OxyCODONE/APAP 7.5/325 TABLET PO PRN ×3 (05:14→21:24)
[2017-11-01] MEDS: Gabapentin 400 MG CAPSULE PO SCH ×3 (08:36→21:23)
[2017-11-01] MEDS: Acetaminophen 325 MG TABLET PO PRN ×2 (08:36→15:20)
[2017-11-01] MEDS: Mirtazapine 15 MG TABLET PO SCH (08:36)
[2017-11-01] MEDS: Nicotine 21 MG PATCH.TD24 TD SCH (08:37)
[2017-11-01] MEDS: Bisacodyl 10 MG RECTAL SUPPOSITORY RC SCH (08:44)
[2017-11-01] MEDS: Insulin DETEMIR 100 UNIT/ML X5UNITS SQ SCH ×2 (08:44→21:23)
[2017-11-01] MEDS: Insulin LISPRO 300 UNITS/3 ML VIAL SQ SCH ×4 (08:45→21:22)
--- NOTE | 2017-11-01 09:17 | Internal Med Progress Note ---
Date of Encounter: 11/01/17 Time of Encounter: 09:15 - Assessment and plan (1) COPD (chronic obstructive pulmonary disease) Current Visit: No Status: Acute Assessment and plan: Stab;e at the present time and seems t be at her baseline Qualifiers: COPD type: unspecified COPD Qualified Code(s): J44.9 - Chronic obstructive pulmonary disease, unspecified (2) Type 2 diabetes mellitus Current Visit: No Status: Chronic Assessment and plan: on insulin no new change stable Qualifiers: Diabetes mellitus complication status: without complication Qualified Code( s): E11.9 - Type 2 diabetes mellitus without complications (3) Weakness Current Visit: No Status: Acute Assessment and plan: getting PT and getting better . Needs to have her Jaime removed . - Subjective Interval history: laying in beds no acute issues states that she is getting better breathing has improved considerable and she feels that she is back to her base line She still has foely and is not interested to remove it no other issues She is getting her pT - Constitutional Vitals: Temp Pulse Resp BP Pulse Ox 98.1 F 104 16 126/70 98 11/01/17 07:00 11/01/17 07:00 11/01/17 07:00 11/01/17 07:00 11/01/17 07:00 General appearance: Present: cooperative, A&O X 3, pleasant, no acute distress - Eye Eye exam: Present: PERRL. Absent: scleral icterus, conjuntiva pink Pupils: Present: PERRL - Neck Neck exam general surgery: Present: supple. Absent: tenderness, nuchal rigidity - Respiratory Respiratory exam: Present: CTAB. Absent: respiratory distress, rhonchi, stridor , wheezes, tachypnea - Cardiovascular Cardiovascular exam: Present: RRR, +S1, +S2. Absent: irregular rhythm, JVD - GI/Abdominal GI/Abdominal exam: Present: normal bowel sounds, soft. Absent: rebound, rigid - Extremities Exam Extremities exam: Absent: pedal edema, tenderness - Neurological Exam Neurological exam: Present: CN II-XII intact, oriented X3. Absent: pronater drift, facial droop, speech deficit Internal Medicine: Result - Labs CBC & Chem 7: 10/31/17 08:16 10/31/17 08:16 Labs: Short CBC 10/31/17 Range/Units 08:16 WBC 9.6 (4.3-11.1) K/mcL Hgb 10.1 L (11.5-15.4) g/dL Hct 29.7 L (35.3-44.9) % Plt Count 322 D (140-400) K/mcL Neutrophils # 7.0 (1.6-8.9) K/mcL BMP 10/31/17 08:16 Sodium 136 Potassium 4.2 Chloride 101 Carbon Dioxide 27 BUN 11 Creatinine 0.53 L Glucose 169 H Calcium 8.7 Liver Function 10/31/17 Range/Units 08:16 Total Bilirubin 0.3 (0.3-1.0) mg/dL AST 17 (13-39) Units/L ALT 12 (7-52) Units/L Alkaline Phosphatase 87 (34-104) Units/L Albumin 3.2 L (3.5-5.7) g/dL Consult Discharge Plan - Plan Referrals: NONE,PCP [Primary Care Provider] -
[2017-11-02] MEDS: *HR* Enoxaparin 40 MG/0.4 ML SYRINGE SQ SCH (06:56)
[2017-11-02] MEDS: Gabapentin 400 MG CAPSULE PO SCH ×3 (08:37→21:16)
[2017-11-02] MEDS: Mirtazapine 15 MG TABLET PO SCH (08:37)
[2017-11-02] MEDS: Nicotine 21 MG PATCH.TD24 TD SCH (08:37)
[2017-11-02] MEDS: Insulin LISPRO 300 UNITS/3 ML VIAL SQ SCH ×4 (08:41→21:15)
[2017-11-02] MEDS: *HR* OxyCODONE/APAP 7.5/325 TABLET PO PRN ×3 (08:42→23:46)
--- NOTE | 2017-11-02 08:45 | Internal Med Progress Note ---
Date of Encounter: 11/02/17 Time of Encounter: 08:43 - Assessment and plan (1) COPD (chronic obstructive pulmonary disease) Current Visit: No Status: Acute Assessment and plan: back her normal self no longer SOB at the present time . Continue present treatment increase mobility . If possible remove Sandoval after bladder training Qualifiers: COPD type: unspecified COPD Qualified Code(s): J44.9 - Chronic obstructive pulmonary disease, unspecified (2) Type 2 diabetes mellitus Current Visit: No Status: Chronic Assessment and plan: well controlled few episodes of high blood sugars continue to watch and adjust med as needed Qualifiers: Diabetes mellitus complication status: without complication Qualified Code( s): E11.9 - Type 2 diabetes mellitus without complications (3) Weakness Current Visit: No Status: Acute Assessment and plan: Getting PT and participating . Continue present treatment - Subjective Interval history: lNo new issues seems to be doing no complains of SOB she is participating in her PT .still has a sandvoal - Constitutional Vitals: Temp Pulse Resp BP Pulse Ox 98.7 F 97 16 138/77 97 11/02/17 07:00 11/02/17 07:00 11/02/17 07:00 11/02/17 07:00 11/02/17 07:00 General appearance: Present: cooperative, A&O X 3, pleasant, no acute distress - Head Head exam: Present: atraumatic - Eye Eye exam: Present: PERRL. Absent: scleral icterus, conjuntiva pink Pupils: Present: PERRL - Neck Neck exam general surgery: Present: supple. Absent: tenderness, nuchal rigidity - Respiratory Respiratory exam: Present: CTAB. Absent: rales, respiratory distress, rhonchi, stridor, wheezes, tachypnea - Cardiovascular Cardiovascular exam: Present: RRR, +S1, +S2. Absent: irregular rhythm, JVD - GI/Abdominal GI/Abdominal exam: Present: normal bowel sounds, soft. Absent: distended, firm , rebound, rigid - Extremities Exam Extremities exam: Present: warm, radial pulses palpable and symmetrical. Absent : pedal edema, tenderness - Back Exam Back exam: Absent: tenderness Additional comments: has skin break at lower back - Neurological Exam Neurological exam: Present: CN II-XII intact, oriented X3, no focal deficits. Absent: facial droop, speech deficit - Skin Additional comments: are of small skin break left heel and back . has dressing no discharge no infection Internal Medicine: Result - Labs CBC & Chem 7: 10/31/17 08:16 10/31/17 08:16 Consult Discharge Plan - Plan Referrals: NONE,PCP [Primary Care Provider] -
[2017-11-02] MEDS: Insulin DETEMIR 100 UNIT/ML X5UNITS SQ SCH ×2 (09:42→21:15)
[2017-11-02] MEDS: Bisacodyl 10 MG RECTAL SUPPOSITORY RC SCH (09:51)
[2017-11-02] MEDS: Acetaminophen 325 MG TABLET PO PRN (21:16)
[2017-11-03] MEDS: *HR* OxyCODONE/APAP 7.5/325 TABLET PO PRN ×2 (06:48→15:30)
[2017-11-03] MEDS: *HR* Enoxaparin 40 MG/0.4 ML SYRINGE SQ SCH (06:48)
[2017-11-03] MEDS: Insulin LISPRO 300 UNITS/3 ML VIAL SQ SCH ×4 (09:26→20:16)
[2017-11-03] MEDS: Mirtazapine 15 MG TABLET PO SCH (09:27)
[2017-11-03] MEDS: Gabapentin 400 MG CAPSULE PO SCH ×3 (09:27→20:27)
[2017-11-03] MEDS: Nicotine 21 MG PATCH.TD24 TD SCH (09:28)
[2017-11-03] MEDS: Insulin DETEMIR 100 UNIT/ML X5UNITS SQ SCH ×2 (09:28→20:26)
[2017-11-03] MEDS: Bisacodyl 10 MG RECTAL SUPPOSITORY RC SCH (09:28)
[2017-11-03] MEDS ORDERED: Fluconazole 100 MG TABLET PO ONE (13:19)
--- NOTE | 2017-11-03 13:22 | Internal Med Progress Note ---
Date of Encounter: 11/03/17 Time of Encounter: 13:20 - Assessment and plan (1) Vaginal eduard Current Visit: Yes Status: Acute Assessment and plan: diflucan ordered for today. (2) Weakness Current Visit: No Status: Acute Assessment and plan: continue PT/OT. will follow progress. currently SBA with ADL's. - Time Spent With Patient less than 15 minutes - Subjective Interval history: complaining of vaginal yeast infection, itchy with discharge for 2 days. was on recent atb. will order diflucan and d/c sandoval cath today. pepe follow bladder scans. denies pain or other issues at this time. - Constitutional Vitals: Temp Pulse Resp BP Pulse Ox 97.7 F 97 18 148/67 94 11/03/17 07:50 11/03/17 07:50 11/03/17 07:50 11/03/17 07:50 11/03/17 07:50 General appearance: Present: cooperative, A&O X 3, pleasant, no acute distress - Head Head exam: Present: atraumatic, normocephalic - Eye Eye exam: Present: PERRL, conjuntiva pink, sclera anicteric Pupils: Present: PERRL - Neck Neck exam general surgery: Present: supple, trachea midline. Absent: lymphadenopathy - Respiratory Respiratory exam: Present: CTAB. Absent: accessory muscle use, rales, rhonchi, wheezes - Cardiovascular Cardiovascular exam: Present: RRR, +S1, +S2. Absent: diastolic murmur, gallop, rubs, systolic murmur - GI/Abdominal GI/Abdominal exam: Present: normal bowel sounds, soft, no peritoneal signs. Absent: distended, tenderness - Extremities Exam Extremities exam: Present: warm, radial pulses palpable and symmetrical. Absent : calf tenderness, cyanotic, pedal edema - Neurological Exam Neurological exam: Present: CN II-XII intact, oriented X3, no focal deficits. Absent: pronater drift, facial droop, speech deficit - Skin Skin exam: Present: dry, intact Additional comments: sacral and left heal wound drsg dry and intact. Internal Medicine: Result - Labs CBC & Chem 7: 10/31/17 08:16 10/31/17 08:16 Consult Discharge Plan - Plan Referrals: NONE,PCP [Primary Care Provider] -
--- NOTE | 2017-11-03 15:53 | Physical Med Progress Note ---
Date of Encounter: 11/03/17 Time of Encounter: 14:15 Assessment and Plan (1) Weakness Current Visit: No Status: Acute Assessment and plan: Good progress in therapies. Jaime discontinued. I put parameters on in the event of retention. Discharge planning. HH RN & PT Physical Medicine-PN: Subj Interval history: Vaginal pruritis. - Constitutional Vitals: Vital Signs Temp Pulse Resp BP Pulse Ox 11/03/17 07:50 97.7 F 97 18 148/67 94 11/02/17 18:52 98.4 F 102 16 125/70 96 Intake and Output 11/02/17 11/03/17 11/03/17 23:59 07:59 15:59 Intake Total 480 / 480 840 / 840 Output Total 200 / 200 475 / 475 Balance 280 / 280 -475 / -475 840 / 840 Intake: Oral 480 / 480 840 / 840 Output: Catheter 200 / 200 475 / 475 Other: Meal Dinner Lunch Percent of Meal Consumed 85% 85% Stool Size Large Stool Consistency soft formed Stool Color Brown Weight 55.075 kg Blood Glucose* 197 97 256 Patient Weight 11/03/17 23:59 Weight 55.075 kg - Extremities Exam Extremities exam: Present: full ROM, normal inspection Additional comments: Good LE strength. Amb 100' with wheeled walker. ADLs with SBA Physical Medicine-PN: Obj Data - Labs CBC & Chem 7: 10/31/17 08:16 10/31/17 08:16 Labs: Laboratory Results - last 24 hr 11/02/17 11/02/17 11/02/17 07:56 16:25 19:57 POC Glucose 92 H 101 H 197 H 11/03/17 11/03/17 06:59 11:22 POC Glucose 97 H 256 H Consult Discharge Plan - Plan Referrals: NONE,PCP [Primary Care Provider] -
[2017-11-03] MEDS: Acetaminophen 325 MG TABLET PO PRN (20:26)
[2017-11-04] MEDS: *HR* OxyCODONE/APAP 7.5/325 TABLET PO PRN ×2 (05:18→12:01)
[2017-11-04] MEDS: *HR* Enoxaparin 40 MG/0.4 ML SYRINGE SQ SCH (05:18)
[2017-11-04 07:35] VITALS: BP 114/66
[2017-11-04] MEDS: Insulin LISPRO 300 UNITS/3 ML VIAL SQ SCH ×2 (08:27→12:01)
[2017-11-04] MEDS: Bisacodyl 10 MG RECTAL SUPPOSITORY RC SCH (08:27)
[2017-11-04] MEDS: Mirtazapine 15 MG TABLET PO SCH (09:33)
[2017-11-04] MEDS: Gabapentin 400 MG CAPSULE PO SCH (09:33)
[2017-11-04] MEDS: Insulin DETEMIR 100 UNIT/ML X5UNITS SQ SCH (09:33)
[2017-11-04] MEDS: Nicotine 21 MG PATCH.TD24 TD SCH (09:33)
--- NOTE | 2017-11-04 10:05 | Physician Discharge Referral ---
Home Health/Hosp Referral Info Transfer to: Home Health Provider in Charge Post Discharge: PCP - Diagnosis (1) Vaginal eduard Priority: Secondary Status: Acute (2) Weakness Priority: Primary Status: Acute - Respiratory Orders Smoking Cessation: Smoking cessation has been advised. For more information, call the [place] Tobacco Quit Line at 6-235-CNOH-NOW. - Diet/Nutrition Diet/Nutrition Orders: Regular - Activity Activity Orders: Walker - Services Needed Following services are medically necessary services: Nursing, Physical Therapy - Transfer Medications Home Medications: Insulin Glargine [Lantus] 30 unit SQ BID 07/10/16 [History] Oxycodone HCl/Acetaminophen [Percocet 10-325 mg Tablet] 7.5 tab PO PRN PRN 07/10 [History] Promethazine [Phenergan] 25 mg PO Q6HR 07/10/16 [History] Gabapentin [Neurontin] 400 mg PO TID 08/17/17 [History] Amitriptyline [Elavil] 100 mg PO HS 10/03/17 [History] Insulin Regular Human [Humulin R] 0 unit SQ PER PKG DI 10/03/17 [History] Metoclopramide [Reglan] 10 mg PO QIDAC 10/03/17 [History] Amitriptyline [Elavil] 10 mg PO HS #7 tablet 10/07/17 [Rx] Amitriptyline [Elavil] 25 mg PO HS #7 tablet 10/07/17 [Rx] Amitriptyline [Elavil] 50 mg PO HS #7 tablet 10/07/17 [Rx] Mirtazapine [Remeron] 15 mg PO DAILY #30 tablet 10/07/17 [Rx] Polyethylene Glycol 3350 [MiraLAX] 17 gm PO DAILY #7 powd.pack 10/07/17 [Rx] Nicotine Patch [Nicoderm] 21 mg TD 10/30/17 [History] Potassium Chloride 20 meq PO DAILY 10/30/17 [History] Zolpidem [Ambien] 5 mg PO HS 10/30/17 [History] Allergies/Adverse Reactions: 3 Allergy/AdvReac Type Severity Reaction Status Date / Time gentamicin Allergy Unknown See Verified 10/05/17 09:29 Comments Penicillins Allergy Unknown See Verified 10/05/17 09:29 Comments sertraline [From Zoloft] Allergy Unknown See Verified 10/05/17 09:29 Comments tramadol Allergy Unknown See Verified 10/05/17 09:29 Comments trazodone Allergy Unknown See Verified 10/05/17 09:29 Comments atorvastatin [From Lipitor] Allergy tingling Verified 10/05/17 09:29 duloxetine [From Cymbalta] Allergy Numbness Verified 10/05/17 09:29 ketorolac [From Toradol] Allergy tingling Verified 10/05/17 09:29 morphine Allergy see comment Verified 10/05/17 09:29 ondansetron Allergy see comment Verified 10/05/17 09:29 [From Zofran (as hydrochloride)] prochlorperazine Allergy see comment Verified 10/05/17 09:29 Certification: Further, I certify that my clinical findings support that this patient is homebound (i.e. absences from home require considerable and taxing effort and are for medical reasons or restorationist services or infrequently or short duration when for other reasons) because: Homebound Reason: Patient requires assistance of a person or device to safely leave home, Leaving home requires considerable and taxing effort due to condition Attestation: My signature below is to certify that this patient is under my care and that I, or nurse practitioner, or a physician's library assistant working with me, has a face-to -face encounter with this patient.
--- NOTE | 2017-11-04 10:09 | Internal Med Progress Note ---
Date of Encounter: 11/04/17 Time of Encounter: 10:07 - Assessment and plan (1) Vaginal eduard Current Visit: Yes Status: Acute Assessment and plan: diflucan ordered yesterday. f/u with PCP if not improving. (2) Weakness Current Visit: No Status: Acute Assessment and plan: continue PT at home. - Subjective Interval history: Patient discharge into home today with home health PT and nursing. Scheduled to follow up for wound on sacral area and left heel. Patient states she is not PCP at this time but will be finding one. Prescriptions for 30 days of medication will be given at discharge. Will follow-up and pain management clinic for pain medications. Denies any questions or concerns at this time. - Constitutional Vitals: Temp Pulse Resp BP Pulse Ox 97.8 F 95 18 114/66 99 11/04/17 07:34 11/04/17 07:34 11/04/17 07:34 11/04/17 07:34 11/04/17 07:34 General appearance: Present: cooperative, A&O X 3, pleasant, no acute distress - Head Head exam: Present: atraumatic, normocephalic - Eye Eye exam: Present: PERRL, conjuntiva pink, sclera anicteric Pupils: Present: PERRL - Neck Neck exam general surgery: Present: supple, trachea midline. Absent: lymphadenopathy - Respiratory Respiratory exam: Present: CTAB. Absent: accessory muscle use, rales, rhonchi, wheezes - Cardiovascular Cardiovascular exam: Present: RRR, +S1, +S2. Absent: diastolic murmur, gallop, rubs, systolic murmur - GI/Abdominal GI/Abdominal exam: Present: normal bowel sounds, soft, no peritoneal signs. Absent: distended, tenderness - Extremities Exam Extremities exam: Present: warm, radial pulses palpable and symmetrical. Absent : calf tenderness, cyanotic, pedal edema - Neurological Exam Neurological exam: Present: CN II-XII intact, oriented X3, no focal deficits. Absent: pronater drift, facial droop, speech deficit - Skin Skin exam: Present: dry, intact Internal Medicine: Result - Labs CBC & Chem 7: 10/31/17 08:16 10/31/17 08:16 Consult Discharge Plan - Plan Referrals: NONE,PCP [Primary Care Provider] -
--- NOTE | 2017-11-04 10:52 | Discharge Summary ---
Orders not resulted at time of discharge: Pending orders 10/31/17 12:10 UC [Culture,Urine] [RM] Routine Date of Encounter: 11/04/17 Time of Encounter: 10:12 - Discharge Diagnosis (1) Weakness Priority: Primary Status: Acute Comments: continue home PT. 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 instructed to check blood sugar is a ACHS and PRN. Follow up with PCP. (3) Vaginal eduard Priority: Secondary Status: Acute Comments: instructed if no improvement follow up with PCP Hospital course: Ms. Jones is a 67 year old female Discharge discussed with: patient - Time Spent with Patient Total time spent providing and/or coordinating discharge services: Greater than 30 minutes - Discharge Medications Home Medications: Oxycodone HCl/Acetaminophen [Percocet 10-325 mg Tablet] 7.5 tab PO PRN PRN 07/10 [History] Promethazine [Phenergan] 25 mg PO Q6HR 07/10/16 [History] Amitriptyline [Elavil] 100 mg PO HS 10/03/17 [History] Insulin Regular Human [Humulin R] 0 unit SQ PER PKG DI 10/03/17 [History] Amitriptyline [Elavil] 10 mg PO HS #7 tablet 10/07/17 [Rx] Amitriptyline [Elavil] 50 mg PO HS #7 tablet 10/07/17 [Rx] Polyethylene Glycol 3350 [MiraLAX] 17 gm PO DAILY #7 powd.pack 10/07/17 [Rx] Amitriptyline [Elavil] 25 mg PO HS #30 tablet 11/04/17 [Rx] Gabapentin [Neurontin] 400 mg PO TID 14 Days #42 capsule 11/04/17 [Rx] Insulin DETEMIR [Levemir] 20 unit SQ BID #14 [id number] 11/04/17 [Rx] Insulin LISPRO [HumaLOG] 0 units SQ TIDAC #2 vial 11/04/17 [Rx] Metoclopramide [Reglan] 10 mg PO QIDAC #14 tablet 11/04/17 [Rx] Mirtazapine [Remeron] 15 mg PO DAILY #30 tablet 11/04/17 [Rx] Potassium Chloride 20 meq PO DAILY #14 tab.er.prt 11/04/17 [Rx] Zolpidem [Ambien] 5 mg PO HS 14 Days #14 tablet 11/04/17 [Rx] Allergies/Adverse Reactions: 3 Allergy/AdvReac Type Severity Reaction Status Date / Time gentamicin Allergy Unknown See Verified 10/05/17 09:29 Comments Penicillins Allergy Unknown See Verified 10/05/17 09:29 Comments sertraline [From Zoloft] Allergy Unknown See Verified 10/05/17 09:29 Comments tramadol Allergy Unknown See Verified 10/05/17 09:29 Comments trazodone Allergy Unknown See Verified 10/05/17 09:29 Comments atorvastatin [From Lipitor] Allergy tingling Verified 10/05/17 09:29 duloxetine [From Cymbalta] Allergy Numbness Verified 10/05/17 09:29 ketorolac [From Toradol] Allergy tingling Verified 10/05/17 09:29 morphine Allergy see comment Verified 10/05/17 09:29 ondansetron Allergy see comment Verified 10/05/17 09:29 [From Zofran (as hydrochloride)] prochlorperazine Allergy see comment Verified 10/05/17 09:29 Date of admission: 10/30/17 16:15 Primary care physician: PCP NONE Consults: 10/30/17 16:54 Consult to Occupational Therapy [CONS] Routine Comment: eval and treat Reason for Consult: deconditioning Consult to Physical Therapy [CONS] Routine Comment: eval and treat Reason for Consult: deconditioning Consult to Recreational Therapy [CONS] Routine Comment: Consult to Waste Oil Pumper [CONS] Routine Reason for SW Consult: discharge planning 10/30/17 17:00 Consult to Physician [CONS] Routine Consulting Provider: Justice Borden Reason for Consult: pain in right leg Call Completed: No Discharging clinician: Holley Zamora Anticipated date of discharge: 11/04/17 - Constitutional Vitals: Temp Pulse Resp BP Pulse Ox 97.8 F 95 18 114/66 99 11/04/17 07:34 11/04/17 07:34 11/04/17 07:34 11/04/17 07:34 11/04/17 07:34 General appearance: Present: cooperative, A&O X 3, pleasant, no acute distress - Head Head exam: Present: atraumatic, normocephalic - Eye Eye exam: Present: PERRL, conjuntiva pink, sclera anicteric Pupils: Present: PERRL - Neck Neck exam general surgery: Present: supple, trachea midline. Absent: lymphadenopathy - Respiratory Respiratory exam: Present: CTAB. Absent: accessory muscle use, rales, rhonchi, wheezes - Cardiovascular Cardiovascular exam: Present: RRR, +S1, +S2. Absent: diastolic murmur, gallop, rubs, systolic murmur - GI/Abdominal GI/Abdominal exam: Present: normal bowel sounds, soft, no peritoneal signs. Absent: distended, tenderness - Extremities Exam Extremities exam: Present: warm, radial pulses palpable and symmetrical. Absent : calf tenderness, cyanotic, pedal edema - Neurological Exam Neurological exam: Present: CN II-XII intact, oriented X3, no focal deficits. Absent: pronater drift, facial droop, speech deficit - Skin Skin exam: Present: dry, intact - Patient Status Disposition: Home Health Service Condition: Fair Functional capacity at discharge: uses cane/walker Overall status at discharge: patient is progressing back to baseline - Discharge Instructions Follow Up With: NONE,PCP [Primary Care Provider] - - Diet and Activity Activity: as per physical therapy Diet: advance to your usual diet
== END 2017-11-04 14:06 | disposition home health service (06) | DRG 946 ==
LOC: INPGRE 16:15

== ENCOUNTER 2019-05-04 20:36 | Observation (INO) ==
[~2019-05-04 20:36] MED LIST: Isovue-370 500 ML BOTTLE PO ONE
[2019-05-04] MEDS ORDERED: Isovue-370 500 ML BOTTLE IVP ONE (21:41)
[2019-05-04] MEDS ORDERED: *HR* FentaNYL (PF) 100 MCG/2 ML VIAL IVP ONE (21:41)
[2019-05-04] MEDS ORDERED: 0.9 % Sodium Chloride 1,000 ML IVC ONE (21:41)
[2019-05-04] MEDS ORDERED: *HR* Promethazine 25 MG/ML VIAL IVP ONE (21:42)
--- NOTE | 2019-05-04 21:45 | Emergency Department Note ---
Disposition Clinical Impression: Esophagitis, Epigastric abdominal pain, Type 2 diabetes mellitus Vomiting Qualifiers: Vomiting type: unspecified Vomiting Intractability: intractable Nausea presence: with nausea Qualified Code(s): R11.2 - Nausea with vomiting, unspecified Disposition: Admitted As Inpatient Condition: Fair Referrals: Greyson Cisneros MD [Primary Care Provider] - Forms: ED Satisfaction Letter, Work/School Release Time of Disposition: 00:48 Abdominal Pain HPI - General Chief Complaint: ED Abdominal Pain Stated Complaint: Vomiting Diarrhea Nausea Dizzness Loss of balance Time Seen by Provider: 05/04/19 20:43 Source: patient, family Limitations: no limitations Nursing Notes Reviewed: Yes Vital Signs Reviewed: Yes - History of Present Illness HPI Narrative: 68-year-old female percents for evaluation of vomiting and diarrhea. Patient states she has had diarrhea off and on for the last 6-8 months. Over the last 48 hours she has had nausea vomiting and upper quadrant and left lower quadrant abdominal pain. Patient states no obvious fever or chills. She denies any dysuria urgency frequency or hematuria. She states prior bladder surgery and prior cholecystectomy Pain Scale: 9 - Related Data Home Medications Medication Instructions Recorded Confirmed Promethazine [Phenergan] 25 mg PO Q6HR 07/10/16 05/04/19 Amitriptyline [Elavil] 100 mg PO HS 10/03/17 01/29/19 Insulin Glargine,Hum.rec.anlog 30 unit SQ BID 01/29/19 01/29/19 [Lantus Solostar] Magnesium Oxide [Mag-Oxide 400 mg PO DAILY 01/29/19 01/29/19 Magnesium] Pantoprazole Sodium [Protonix] 40 mg PO DAILY 01/29/19 01/29/19 metFORMIN [Glucophage] 500 mg PO BIDWM 01/29/19 01/29/19 Previous Rx's Medication Instructions Recorded Potassium Chloride 20 meq PO DAILY #14 tab.er.prt 11/04/17 Ondansetron ODT [Zofran ODT] 4 mg SL Q4HR PRN #10 tab.rapdis 01/29/19 Allergies Allergy/AdvReac Type Severity Reaction Status Date / Time gentamicin Allergy Unknown See Verified 05/05/19 00:43 Comments Penicillins Allergy Unknown See Verified 05/05/19 00:43 Comments sertraline [From Zoloft] Allergy Unknown See Verified 05/05/19 00:43 Comments tramadol Allergy Unknown See Verified 05/05/19 00:43 Comments trazodone Allergy Unknown See Verified 05/05/19 00:43 Comments atorvastatin [From Lipitor] Allergy tingling Verified 05/05/19 00:43 duloxetine [From Cymbalta] Allergy Numbness Verified 05/05/19 00:43 ketorolac [From Toradol] Allergy tingling Verified 05/05/19 00:43 morphine Allergy see comment Verified 05/05/19 00:43 ondansetron Allergy see comment Verified 05/05/19 00:43 [From Zofran (as hydrochloride)] prochlorperazine Allergy see comment Verified 05/05/19 00:43 Review of Systems: Constitutional: [Negative for fever and chills.] HENT: [Negative for congestion.] Eyes: [Negative for discharge.] Respiratory: [Negative for shortness of breath.] Cardiovascular: [Negative for chest pain.] Gastrointestinal: See history of present illness Endocrine: [Negative for excessive thirst,urination] Genitourinary: [Negative for dysuria and frequency.] Musculoskeletal: [Negative for myalgias and arthralgias.] Skin: [Negative for rash.] Neurological: [Negative for dizziness, localized weakness and headaches.] Psychiatric/Behavioral: [Negative for nervous/anxious.] All other systems reviewed and are negative. 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 HENT: Head: Normocephalic and atraumatic. Right Ear: External ear normal. Left Ear: External ear normal. Nose: Nose normal. Mouth/Throat: Oropharynx is clear and mucous membranes show mild to moderate dehydration Eyes: Conjunctivae and EOM are normal. Pupils are equal, round, and reactive to light. Right eye exhibits [no] discharge. Left eye exhibits [no] discharge. Neck: Trachea is midline, normal range of motion and [phonation normal]. Neck supple. Cardiovascular: [Regular rhythm], S1 normal, S2 normal, normal heart sounds and intact distal pulses. Exam reveals no gallop and no friction rub. No murmur heard. [Capillary refill is brisk.] [Peripheral pulses are 2+] Pulmonary/Chest: Effort [normal] No stridor. [No] tachypnea. [No] respiratory distress. There are [no] decreased breath sounds. [There no wheezes, no rhonchi, or rales.] Abdominal: Soft. [Bowel sounds are normal]. There exhibits [no] distension and [no] mass. There is no hepatosplenomegaly. There is left upper quadrant and left lower quadrant tenderness with some mild guarding, [no] CVA tenderness. There is there is no rigidity or rebound. Musculoskeletal: Normal range of motion of uninvolved extremities. There exhibits [no edema]. [ ] Neurological: Patient is alert. Patient displays no atrophy and no tremor. Moves all 4 extremities equally without gross deficit. No cranial nerve deficit and exhibits normal muscle tone. Coordination normal grossly. Skin: Skin is warm and dry. No erythema. No rash noted. Psychiatric: Patient has a [normal mood and affect.] Course Course Narrative: Patient remains nauseated and still has a prior abdominal pain despite IV fluids, antibiotics, and pain medicine. I discussed the case with Dr. Giles will admit her to an observation bed Vital Signs Temperature 98.0 F 05/04/19 20:53 Pulse Rate 91 05/04/19 20:53 Respiratory Rate 18 05/04/19 20:53 Blood Pressure 134/79 05/04/19 20:53 O2 Sat by Pulse Oximetry 96 05/04/19 20:53 Temperature 98.0 F 05/04/19 20:53 Pulse Rate 101 05/04/19 23:52 Respiratory Rate 16 05/04/19 23:52 Blood Pressure 136/85 05/05/19 00:00 O2 Sat by Pulse Oximetry 94 05/04/19 23:52 Oxygen Delivery Oxygen Delivery Room Air Abdominal Pain - Lab Data Lab results reviewed: Yes I reviewed the patient's lab results. Result diagrams: 05/04/19 22:01 05/04/19 22:01 Lab Results 05/04/19 05/04/1905/04/19 Range/Units 22:01 22:01 22:01 WBC 10.4 (4.3-11.1) K/mcL RBC 3.76 L (3.82-4.97) M/mcL Hgb 12.0 (11.5-15.4) g/dL Hct 35.2 L (35.3-44.9) % MCV 93.6 (83.0-100.0) fL MCH 31.9 (28.0-33.3) pg MCHC 34.1 (31.6-35.5) g/dL RDW 12.9 (11.5-14.5) % Plt Count 293 (140-400) K/mcL MPV 11.0 (9.4-12.4) fL Immature Gran % 0.6 (0-4) % Seg Neutrophils % 79.3 % Lymphocytes % 15.0 % Monocytes % 4.7 % Eosinophils % 0.1 % Basophils % 0.3 % Neutrophils # 8.2 (1.6-8.9) K/mcL Lymphocytes # 1.6 (0.6-4.6) K/mcL Monocytes # 0.5 (0.0-1.3) K/mcL Eosinophils # 0.0 (0.0-0.6) K/mcL Basophils # 0.0 (0.0-0.2) K/mcL Sodium 139 (136-145) mEq/L Potassium 3.3 L (3.5-5.1) mEq/L Chloride 97 L (98-107) mEq/L Carbon Dioxide 28 (23-29) mEq/L BUN 18 (8-23) mg/dL Creatinine 0.89 (0.60-1.20) mg/dL Est GFR ( Amer) > 60 (> 60) Est GFR (Non-Af Amer) > 60 (> 60) BUN/Creatinine Ratio 20 (6-26) Glucose 324 H (70-105) mg/dL Calculated Osmolality 302 H (280-300) Calcium 9.0 (8.6-10.3) mg/dL Total Bilirubin 0.4 (0.3-1.0) mg/dL AST 11 L (13-39) Units/L ALT 14 (7-52) Units/L Alkaline Phosphatase 119 H (34-104) Units/L Serum Total Protein 7.6 (6.4-8.9) g/dL Albumin 4.4 (3.5-5.7) g/dL Globulin 3.2 (2.4-3.5) g/dL Albumin/Globulin Ratio 1.4 (1.1-2.2) Lipase 9 L (11-82) Units/L Urine Color Yellow (Yellow) Urine Clarity Clear (Clear) Urine pH 6.0 (5.0-8.0) pH Units Ur Specific [place] 1.015 (1.010-1.025) Urine Protein Negative (Neg-Trace) mg/dL Urine Glucose (UA) 500 H (Normal) mg/dL Urine Ketones Negative (Negative) mg/dL Urine Blood Negative (Negative) Urine Nitrite Negative (Negative) Urine Bilirubin Negative (Negative) Urine Urobilinogen Normal (Normal) mg/dL Ur Leukocyte Esterase Negative (Negative) Ur Culture Indicated? NO (NO) - Radiology Data Radiology results reviewed: Yes I reviewed the patient's radiology results. CT/CT abd pelvis w iv and oral IMPRESSION: Distal esophageal wall thickening/edema, suggesting esophagitis. No acute abdominopelvic findings. Heavy mixed calcified atherosclerotic disease along the abdominal aorta and branch vessels, notable for severe luminal narrowing of the proximal inferior mesenteric artery (SAMMY) just after its origin. Branches of the SAMMY opacified distally. No evidence for ischemic bowel. - EKG Data EKG attestation: Yes I reviewed and interpreted this EKG. EKG shows normal: sinus rhythm, axis, intervals, QRS complexes, ST-T waves Rate: tachycardia Interpretation: no acute changes
[2019-05-04 22:09] LABS: Basophils % 0.3 %; Eosinophils % 0.1 %; Hematocrit 35.2 % (35.3-44.9); Immature Granulocytes % 0.6 % (0-4); Lymphocytes # 1.6 K/mcL (0.6-4.6); Mean Corpuscular HGB Conc 34.1 g/dL (31.6-35.5); Mean Corpuscular Hemoglobin 31.9 pg (28.0-33.3); Mean Corpuscular Volume 93.6 fL (83.0-100.0); Monocytes # 0.5 K/mcL (0.0-1.3); Monocytes % 4.7 %; Neutrophils # 8.2 K/mcL (1.6-8.9); Platelet Count 293 K/mcL (140-400); Red Blood Count 3.76 M/mcL (3.82-4.97); Red Cell Distribution Width 12.9 % (11.5-14.5); Segmented Neutrophils % 79.3 %; White Blood Count 10.4 K/mcL (4.3-11.1)
[2019-05-04 22:10] LABS: Bilirubin,Urine Negative (Negative); Blood,Urine Negative (Negative); Clarity,Urine Clear (Clear); Color,Urine Yellow (Yellow); Glucose,Urine (UA) 500 mg/dL (Normal); Ketones,Urine Negative (Negative); Leukocyte Esterase,Urine Negative (Negative); Nitrite,Urine Negative (Negative); Protein,Urine Negative (Neg-Trace); Specific Gravity,Urine 1.015 (1.010-1.025); Urobilinogen,Urine Normal (Normal)
[2019-05-04 22:27] LABS: Alanine Aminotransferase 14 Units/L (7-52); Albumin 4.4 g/dL (3.5-5.7); Albumin/Globulin Ratio 1.4 (1.1-2.2); Alkaline Phosphatase 119 Units/L (34-104); Aspartate Amino Transferase 11 Units/L (13-39); BUN/Creatinine Ratio 20 (6-26); Bilirubin,Total 0.4 mg/dL (0.3-1.0); Blood Urea Nitrogen 18 mg/dL (8-23); Carbon Dioxide 28 mEq/L (23-29); Chloride 97 mEq/L (98-107); Globulin 3.2 g/dL (2.4-3.5); Glucose 324 mg/dL (70-105); Lipase 9 Units/L (11-82); Osmolality,Calculated 302 (280-300); Potassium 3.3 mEq/L (3.5-5.1); Sodium 139 mEq/L (136-145); Total Protein 7.6 g/dL (6.4-8.9); eGFR For African Americans > 60 (> 60); eGFR For Non-African Americans > 60 (> 60)
[2019-05-05] MEDS ORDERED: Insulin Regular, Human 100 UNIT/ML SQ ONE ×2 (00:32→00:43)
[2019-05-05] MEDS ORDERED: Naloxone 0.4 MG/ML INJ IVP PRN (00:43)
[2019-05-05] MEDS ORDERED: *HR* Promethazine 25 MG/ML VIAL IVP PRN (00:43)
[2019-05-05] MEDS ORDERED: D5% in Water 1,000 ML IVC PRN (01:50)
[2019-05-05] MEDS ORDERED: *HR* Dextrose 50 % in Water (Syg) 50 ML SYRINGE IVP PRN (01:50)
[2019-05-05] MEDS ORDERED: Dextrose Gel 15 GM/37.5 ML TUBE PO PRN ×2 (01:50)
[2019-05-05] MEDS: 0.9 % Sodium Chloride 1,000 ML IVC SCH ×2 (02:31→09:12)
[2019-05-05] MEDS: Insulin LISPRO 300 UNITS/3 ML VIAL SQ SCH ×3 (07:27→16:31)
[2019-05-05] MEDS ORDERED: Famotidine 20 MG/2 ML VIAL IVP SCH (07:30)
--- NOTE | 2019-05-05 08:01 | Electrocardiograph Report ---
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
--- NOTE | 2019-05-05 08:11 | Internal Med History&Physical ---
Date of Encounter: 05/05/19 Time of Encounter: 08:09 Assessment and Plan (1) Vomiting Current visit: Yes Status: Acute Etiology is undetermined. Will follow and if continues to improve, will discharge. Qualifiers: Vomiting type: unspecified Vomiting Intractability: intractable Nausea presence: with nausea Qualified Code(s): R11.2 - Nausea with vomiting, unspecified (2) Epigastric abdominal pain Current visit: Yes Status: Acute Uncertain if this is gastritis or otherwise and she is on chronic PPI. Will follow her and see if she improves. (3) Type 2 diabetes mellitus Current visit: Yes Status: Chronic Will continue current regimen and follow with sliding scale coverage. 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 Qualifiers: COPD type: unspecified COPD Qualified Code(s): J44.9 - Chronic obstructive pulmonary disease, unspecified Internal Medicine - H&P: HPI Chief complaint: Nausea and vomiting. Admitted From: Emergency Dept Plans for Post Hospital Care: Home History of present illness: Ms. Jones is a 68 year old female with a history of diabetes, other multiple problems, who has a 2 day history of nausea and vomiting. She had minimal left upper quadrant pain that progressed with her nausea. She has a two-month history of sweats and states that she is "always cold." She denies fevers or change in bowel habits although she does have chronic diarrhea. In other words, no new changes, melena, hematochezia, other color changes, etc. She has not had hematemesis or coffee-ground emesis, either. She has no inciting factors and has not been exposed to anybody that has been sick, to her knowledge. Overnight, she feels like she is doing better but has persistent nausea and left upper quadrant abdominal pain and therefore does not feel ready to go home. Lipase and liver function tests were unremarkable. She has multiple allergies as noted. She has a past medical history of diabetes, hypertension, hyperlipidemia, diabetic foot ulcer at heel as well as chronic sacral ulceration, coronary artery disease, history of CVA, , GERD, DVT right leg, COPD, diffuse arthritis, obesity, tobacco abuse. She smokes about a pack of cigarettes per day and continued to smoke. She denies alcohol or drug use. She lives at home with her son and four chihuahuas. She has poor dentition and has no upper teeth. She states that her "butt wound" is doing better and she simply puts powder on it. Past Med Surg Social Fam HX - Past Medical History Medical history: arthritis, COPD, coronary artery disease, CVA, diabetes, fibromyalgia, GERD, myocardial infarction, other Additional medical history: DVT Right Leg Psychiatric history: depression - Past Surgical History Surgical History: appendectomy, cholecystectomy, hysterectomy, other Additional surgical history: "bladder surgery x5" - Social History Smoking Status: Current every day smoker Packs per day: 1 Smokeless Tobacco Status: No Alcohol use: none Drug use: none - Family History Mother Living Status: Hx Family Cardiac Disorders: Yes (CHF, HTN, [place]) Hx Family Respiratory Disorders: No Hx Family Cancer: No Hx Family GI Disorders: No Hx Family Endocrine Disorder: Yes (DM) Hx Family Neuromuscular Disorders: No Hx Family Neurologic Disorders: No Hx Family HEENT Disorders: No Hx Family Autoimmune Disorders: No Father Adopted: No Family Member Ethnicity: Unknown Living Status: Hx Family Cardiac Disorders: Yes ([place]) Internal Medicine - H&P: Meds Promethazine [Phenergan] 20 mg PO Q6HR 07/10/16 [History] Amitriptyline [Elavil] 100 mg PO HS 10/03/17 [History] Potassium Chloride 20 meq PO DAILY #14 tab.er.prt 11/04/17 [Rx] Insulin Glargine,Hum.rec.anlog [Lantus Solostar] 30 unit SQ BID 01/29/19 [Histo ry] Magnesium Oxide [Mag-Oxide Magnesium] 400 mg PO DAILY 01/29/19 [History] Ondansetron ODT [Zofran ODT] 4 mg SL Q4HR PRN #10 tab.rapdis 01/29/19 [Rx] Pantoprazole Sodium [Protonix] 40 mg PO DAILY 01/29/19 [History] metFORMIN [Glucophage] 500 mg PO BIDWM 01/29/19 [History] HYDROcodone/Acet 10/325 mg [[place] 10-325 mg] 1 tab PO Q6HR PRN 05/05/19 [History] Insulin Glargine [Lantus] 30 unit SQ BID 05/05/19 [History] Opana 10 mg PO Q12H 05/05/19 [History] Allergy/AdvReac Type Severity Reaction Status Date / Time gentamicin Allergy Unknown See Verified 05/05/19 00:43 Comments Penicillins Allergy Unknown See Verified 05/05/19 00:43 Comments sertraline [From Zoloft] Allergy Unknown See Verified 05/05/19 00:43 Comments tramadol Allergy Unknown See Verified 05/05/19 00:43 Comments trazodone Allergy Unknown See Verified 05/05/19 00:43 Comments atorvastatin [From Lipitor] Allergy tingling Verified 05/05/19 00:43 duloxetine [From Cymbalta] Allergy Numbness Verified 05/05/19 00:43 ketorolac [From Toradol] Allergy tingling Verified 05/05/19 00:43 morphine Allergy see comment Verified 05/05/19 00:43 ondansetron Allergy see comment Verified 05/05/19 00:43 [From Zofran (as hydrochloride)] prochlorperazine Allergy see comment Verified 05/05/19 00:43 Paper Tape AdvReac See Uncoded 05/05/19 01:02 Comments All Systems PM: Patient has no complaint of chest discomfort, dyspnea, orthopnea, breathing problems, palpitations, nausea or vomiting, constipation or diarrhea, other changes in bowel habits, heartburn, difficulty with urination, kidney problems or kidney stones, fevers chills or sweats, rash or itching, seizures, headache or lightheadedness, heat or cold intolerance, blood problems or anemia, or other new complaints, except as mentioned above. Review of systems is otherwise negative. - Constitutional Vitals: Temp Pulse Resp BP Pulse Ox 97.7 F 101 20 125/64 96 05/05/19 07:30 05/05/19 07:30 05/05/19 07:30 05/05/19 07:30 05/05/19 07:30 Exam: Examination: (Except as mentioned above): General: In no apparent distress, alert and oriented 3. Head: Atraumatic and normocephalic. Eyes: Extraocular muscles are intact, pupils equal round and reactive to light and accommodation. Sclerae anicteric. Ears: External ears are normal to inspection and hearing is grossly normal. Nose: Patent without lesion noted. Mouth: No intraoral lesions seen. Dentition is absent maxilla and in poor repair with only a few teeth at the mandible. Neck: Supple with trachea midline. There is no thyromegaly or adenopathy and carotids are 2+ without bruit heard. Respiratory: No use of accessory muscles. Lungs are clear throughout. Normal airflow. Cardiovascular: Regular rate and rhythm without murmur appreciated. Abdomen: Bowel sounds are diffusely hyperactive. No hepatosplenomegaly masses but she does have tenderness at left upper quadrant which is without guarding or rebound. Morbidly obese and therefore difficult to palpate deeply. Extremities: No cyanosis clubbing or edema. Neurological: A and O 3. Cranial nerves II through XII are intact. No focal deficits and no abnormal movements or postures. Skin: Warm and non-diaphoretic withsacral wound of the less than 1 cm which is covered by eschar. Breasts, pelvic and rectal: Not examined. Internal Med - H&P Results - Labs CBC & Chem 7: 05/04/19 22:01 05/05/19 08:00 Labs: Short CBC 05/04/19 Range/Units 22:01 WBC 10.4 (4.3-11.1) K/mcL Hgb 12.0 (11.5-15.4) g/dL Hct 35.2 L (35.3-44.9) % Plt Count 293 (140-400) K/mcL Neutrophils # 8.2 (1.6-8.9) K/mcL BMP 05/04/19 22:01 Sodium 139 Potassium 3.3 L Chloride 97 L Carbon Dioxide 28 BUN 18 Creatinine 0.89 Glucose 324 H Calcium 9.0 Liver Function 05/04/19 Range/Units 22:01 Total Bilirubin 0.4 (0.3-1.0) mg/dL AST 11 L (13-39) Units/L ALT 14 (7-52) Units/L Alkaline Phosphatase 119 H (34-104) Units/L Albumin 4.4 (3.5-5.7) g/dL Urine 05/04/19 Range/Units 22:01 Urine Color Yellow (Yellow) Urine Clarity Clear (Clear) Urine pH 6.0 (5.0-8.0) pH Units Ur Specific [place] 1.015 (1.010-1.025) Urine Protein Negative (Neg-Trace) mg/dL Urine Glucose (UA) 500 H (Normal) mg/dL - Impressions ITS Impressions Abdomen/Pelvis CT 05/04/19 21:41 IMPRESSION: Distal esophageal wall thickening/edema, suggesting esophagitis. No acute abdominopelvic findings. Heavy mixed calcified atherosclerotic disease along the abdominal aorta and branch vessels, notable for severe luminal narrowing of the proximal inferior mesenteric artery (SAMMY) just after its origin. Branches of the SAMMY opacified distally. No evidence for ischemic bowel. D/ / Александр Padgett / Александр Padgett Interpreting Provider: Александр Padgett
[2019-05-05 08:25] LABS: BUN/Creatinine Ratio 22 (6-26); Blood Urea Nitrogen 13 mg/dL (8-23); Calcium 7.6 mg/dL (8.6-10.3); Carbon Dioxide 27 mEq/L (23-29); Chloride 104 mEq/L (98-107); Glucose 82 mg/dL (70-105); Osmolality,Calculated 283 (280-300); Sodium 137 mEq/L (136-145); eGFR For African Americans > 60 (> 60); eGFR For Non-African Americans > 60 (> 60)
[2019-05-05] MEDS: *HR* Enoxaparin 40 MG/0.4 ML SYRINGE SQ SCH (12:02)
[2019-05-05] MEDS ORDERED: Ondansetron ODT 4 MG TAB.RAPDIS SL PRN (12:55)
[2019-05-05] MEDS: Nicotine 21 MG PATCH.TD24 TD SCH (16:29)
[2019-05-05] MEDS: *HR* Metformin 500 MG TABLET PO SCH (16:30)
[2019-05-05] MEDS: *HR* HYDROcodone/Acet 10/325 mg TABLET PO PRN (18:45)
[2019-05-05] MEDS ORDERED: Insulin LISPRO 300 UNITS/3 ML VIAL SQ SCH (21:00)
[2019-05-06] MEDS: *HR* HYDROcodone/Acet 10/325 mg TABLET PO PRN ×2 (05:22→13:04)
[2019-05-06] MEDS: Insulin LISPRO 300 UNITS/3 ML VIAL SQ SCH ×2 (07:46→12:39)
[2019-05-06] MEDS ORDERED: NON-FORMULARY MEDICATION 1 EACH EACH (Pantoprazole Sodium [Protonix] 40 MG) PO SCH (09:00)
[2019-05-06] MEDS ORDERED: Magnesium Oxide 400 MG TABLET PO SCH (09:00)
[2019-05-06] MEDS: Nicotine 21 MG PATCH.TD24 TD SCH (09:28)
[2019-05-06] MEDS: *HR* Enoxaparin 40 MG/0.4 ML SYRINGE SQ SCH (09:28)
[2019-05-06] MEDS: *HR* Metformin 500 MG TABLET PO SCH (09:29)
[2019-05-06] MEDS ORDERED: Mag Hydrox/Al Hydrox/Simeth 30 ML UDC PO PRN (10:16)
--- NOTE | 2019-05-06 10:50 | Discharge Summary ---
Date of Encounter: 05/06/19 Time of Encounter: 10:48 - Discharge Diagnosis (1) Epigastric abdominal pain Priority: Primary Status: Acute Comments: Patient continues with complaints of burning to her epigastric area. Patient was given Maalox with relief. Patient is continue with PPI after discharge and follow-up with PCP for further management. Patient has been requesting narcotics for various complaints of pain and currently is requesting a narcotic prescription for her epigastric pain. Patient was instructed that she will not have a prescription given and is continue when necessary Maalox as treatment for her epigastric pain, which is likely related to gastritis. Patient with a history of GERD (2) Diabetes mellitus Priority: Secondary Status: Chronic Comments: No acute issues during her stay at facility. 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 Patient denies any dyspnea or productive cough. Patient's continue with current home medications and follow- up with PCP for further management Hospital course: Ms. Jones is a 68 year old female with a history of diabetes, other multiple problems, who has a 2 day history of nausea and vomiting. She had minimal left upper quadrant pain that progressed with her nausea. She denies fevers or change in bowel habits although she does have chronic diarrhea. In other words, no new changes, melena, hematochezia, other color changes, etc. She has not had hematemesis or coffee-ground emesis, either. Overnight, she felt that she was doing better, but has persistent nausea and left upper quadrant abdominal pain and therefore does not feel ready to go home. Lipase and liver function tests were unremarkable. She remained for another day and today, denies any nausea or vomiting, but does complain of a burning pain in her epigastric area. Patient states that her pain is present during palpation. Patient has been adamant about asking for pain medication for various discomforts and states currently that she would like to have a prescription for pain medication after discharge due to her epigastric pain. Patient was given Maalox for her current epigastric burning. Patient noted to have long acting opiate medications for her home medications. She has multiple allergies as noted. She has a past medical history of diabetes, hypertension, hyperlipidemia, diabetic foot ulcer at heel as well as chronic sacral ulceration, coronary artery disease, history of CVA, , GERD, DVT right leg, COPD, diffuse arthritis, obesity, tobacco abuse. She smokes about a pack of cigarettes per day and continued to smoke. She denies alcohol or drug use. Patient will be discharged to home and instructed to continue follow-up with her PCP for further management. Patient will not be given any narcotic prescriptions at this time as she is on current long-acting opiates and is instructed to follow up with her PCP for further management. Patient's complaints of pain are gastric related and patient was instructed to continue with her omeprazole and take Mylanta when necessary Discharge discussed with: patient Time spent discussing smoking cessation with patient: 3 to 10 minutes - Time Spent with Patient Total time spent providing and/or coordinating discharge services: Time spent: Less than 30 minutes - Discharge Medications Prescriptions: No Action Promethazine [Phenergan] 20 mg PO Q6HR Amitriptyline [Elavil] 100 mg PO HS Potassium Chloride 20 meq PO DAILY #14 tab.er.prt metFORMIN [Glucophage] 500 mg PO BIDWM Magnesium Oxide [Mag-Oxide Magnesium] 400 mg PO DAILY Pantoprazole Sodium [Protonix] 40 mg PO DAILY Insulin Glargine,Hum.rec.anlog [Lantus Solostar] 30 unit SQ BID Ondansetron ODT [Zofran ODT] 4 mg SL Q4HR PRN #10 tab.rapdis PRN Reason: Nausea HYDROcodone/Acet 10/325 mg [[place] 10-325 mg] 1 tab PO Q6HR PRN PRN Reason: Pain Opana 10 mg PO Q12H Insulin Glargine [Lantus] 30 unit SQ BID Home Medications: Promethazine [Phenergan] 20 mg PO Q6HR 07/10/16 [History] Amitriptyline [Elavil] 100 mg PO HS 10/03/17 [History] Potassium Chloride 20 meq PO DAILY #14 tab.er.prt 11/04/17 [Rx] Insulin Glargine,Hum.rec.anlog [Lantus Solostar] 30 unit SQ BID 01/29/19 [History] Magnesium Oxide [Mag-Oxide Magnesium] 400 mg PO DAILY 01/29/19 [History] Ondansetron ODT [Zofran ODT] 4 mg SL Q4HR PRN #10 tab.rapdis 01/29/19 [Rx] Pantoprazole Sodium [Protonix] 40 mg PO DAILY 01/29/19 [History] metFORMIN [Glucophage] 500 mg PO BIDWM 01/29/19 [History] HYDROcodone/Acet 10/325 mg [[place] 10-325 mg] 1 tab PO Q6HR PRN 05/05/19 [History] Insulin Glargine [Lantus] 30 unit SQ BID 05/05/19 [History] Opana 10 mg PO Q12H 05/05/19 [History] Allergies/Adverse Reactions: Allergy/AdvReac Type Severity Reaction Status Date / Time gentamicin Allergy Unknown See Verified 05/05/19 00:43 Comments Penicillins Allergy Unknown See Verified 05/05/19 00:43 Comments sertraline [From Zoloft] Allergy Unknown See Verified 05/05/19 00:43 Comments tramadol Allergy Unknown See Verified 05/05/19 00:43 Comments trazodone Allergy Unknown See Verified 05/05/19 00:43 Comments atorvastatin [From Lipitor] Allergy tingling Verified 05/05/19 00:43 duloxetine [From Cymbalta] Allergy Numbness Verified 05/05/19 00:43 ketorolac [From Toradol] Allergy tingling Verified 05/05/19 00:43 morphine Allergy see comment Verified 05/05/19 00:43 ondansetron Allergy see comment Verified 05/05/19 00:43 [From Zofran (as hydrochloride)] prochlorperazine Allergy see comment Verified 05/05/19 00:43 Paper Tape AdvReac See Uncoded 05/05/19 01:02 Comments Date of admission: 05/05/19 01:37 Primary care physician: Greyson Cisneros MD Discharging clinician: Stephen Giles - Constitutional Vitals: Temp Pulse Resp BP Pulse Ox 98.1 F 81 16 139/72 96 05/06/19 07:00 05/06/19 07:00 05/06/19 07:00 05/06/19 07:00 05/06/19 07:00 General appearance: Present: A&O X 3, pleasant - Head Head exam: Present: atraumatic, normocephalic - Eye Eye exam: Present: PERRL, conjuntiva pink, sclera anicteric Pupils: Present: PERRL - Neck Neck exam general surgery: Present: supple, trachea midline. Absent: lymphadenopathy - Respiratory Respiratory exam: Present: decreased breath sounds, CTAB. Absent: accessory muscle use, rales, rhonchi, wheezes - Cardiovascular Cardiovascular exam: Present: RRR, +S1, +S2. Absent: diastolic murmur, gallop, rubs, systolic murmur - GI/Abdominal GI/Abdominal exam: Present: normal bowel sounds, soft, no peritoneal signs. Absent: distended, tenderness Additional comments: Patient with complaints of pain to her epigastric area which worsens during palpation. No obvious injury or deformity noted. - Extremities Exam Extremities exam: Present: warm, radial pulses palpable and symmetrical. Absent: calf tenderness, cyanotic, pedal edema - Neurological Exam Neurological exam: Present: CN II-XII intact, oriented X3, no focal deficits. Absent: pronater drift, facial droop, speech deficit - Skin Skin exam: Present: dry, intact - Patient Status Disposition: Home, Self-Care Condition: Good Functional capacity at discharge: independent ambulation Overall status at discharge: patient is progressing back to baseline - Discharge Instructions Follow Up With: Greyson Cisneros MD [Primary Care Provider] - - Diet and Activity Activity: increase activity as tolerated Diet: diabetic diet, low fat, low cholesterol, low salt diet
[2019-05-06 11:42] VITALS: BP 130/71
[2019-05-06] MEDS ORDERED: Nicotine 21 MG PATCH.TD24 TD SCH (15:58)
== END 2019-05-06 13:10 | disposition home or self-care (01) ==
LOC: EMEROOGRE 20:36 → INPGRE 20:36